=== PATIENT | male | born 1985 | race Caucasian/White ===

== ENCOUNTER 2016-12-06 11:49 | Emergency (ER) | payer OTHER ==
--- NOTE | 2016-12-06 12:45 | ED CLINICAL REPORT ---
Clinical Report - Physicians/Mid Levels [facility] [address] [place] [address] 12/06/2016 11:53 Patient: ROSA QUILES Time Seen: 12:18 Dec 06 2016. Arrived- By private vehicle. Historian- patient. HISTORY OF PRESENT ILLNESS Chief Complaint: SORE THROAT. This started yesterday and is still present. Pain described as moderate. The patient has had a sore throat. (she reports sore throat body aches, fatigue. Dry cough. Multiple sick contacts with influenza home. Patient reports vomiting.). REVIEW OF SYSTEMS The patient has had fever, a cough, diarrhea and vomiting. No difficulty breathing, abdominal pain, difficulty with urination, headache or skin rash. No enlarged lymph nodes. All systems otherwise negative, except as recorded above. 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 Problems: Sick Contact. Drug Poisoning. PTSD. Hepatitis C carrier. Medications: Omeprazole Oral. Allergies: Pineapple. SOCIAL HISTORY Smoker- current status unknown. Alcohol use. History of drug use: marijuana. ADDITIONAL NOTES The nursing notes have been reviewed. PHYSICAL EXAM Vital Signs: 12/06/2016 12:14 BP: 133/91. HR: 99. RR: 20. O2 saturation: 98%. Temp: 98.6 F. Appearance: Alert. Head: Normal external inspection. ENT: Nose normal. Pharyngeal erythema. Pharynx normal. Lips normal. No trismus present. Uvula midline. No tonsillar exudate, peritonsillar mass, dental decay or tenderness or nasal discharge. No purulent nasal discharge. Neck: Lymphadenopathy present. Trachea midline. CVS: Normal heart rate and rhythm. Heart sounds normal. Respiratory: No respiratory distress. Breath sounds normal. LABS, X-RAYS, AND EKG Laboratory Tests: Culture, Strep Screen: (ALAINA: 12/06/2016 12:15) ( MsgRcvd 12/06/2016 12:35) Final results Test Result Flag Units (Reference) RAPID STREP SCREEN - THROAT DATE: 12/06/16 NEGATIVE SCREEN: RAPID STREP SCREEN NEGATIVE; CONFIRMATION TO FOLLOW Rapid Influenza Screen: (ALAINA: 12/06/2016 12:15) ( MsgRcvd 12/06/2016 12:35) Final results SPECIMEN DESCRIPTION: N Test Result Flag Units (Reference) RAPID INFLUENZA SCREEN DATE: 12/06/16 INFLUENZA A: NEGATIVE SCREEN FOR INFLUENZA A INFLUENZA B: NEGATIVE SCREEN FOR INFLUENZA B . PROGRESS AND PROCEDURES Course of Care: patient afebrile in the ER, uvula midline. Stable. Patient on palpation. Patient is stable. Physical exam findings are improved. Symptoms better. Patient/family counseled. Differential Diagnosis: I considered sepsis, viral infection and flu syndrome as a possible cause of fever in this patient. This is a partial list of diagnoses considered. Disposition: Discharged. CLINICAL IMPRESSION Influenza. INSTRUCTIONS Prescription Medications: Zofran (orally disintegrating tablets) 4 mg: take 1 orally every 6 hours for 3 days as needed for nausea. Dispense ten (10). No refill. Tamiflu 75 mg: take 1 capsule orally every 12 hours for 5 days. Dispense ten (10). No refills. Substitution is permissible. OTC Medications: Motrin IB 200 mg (available over the counter): take 4 orally every 8 hours for 6 days, as needed for pain Follow-up: Follow up with your doctor in three days as needed. (Electronically signed by Ramona Lock P.A.-C 12/06/2016 13:09)
--- NOTE | 2016-12-06 12:45 | ED NURSING NOTES ---
Clinical Report - Nurses [facility] [address] [address] 12/06/2016 11:53 Patient: ROSA QUILES TRIAGE Triage time 12:14. Acuity: LEVEL 3. Chief Complaint: FEVER, COUGH, SORE THROAT and BODY ACHES. --12:16 Lanre Peña R.N. 12:14 12/06/16. BP: 133/91. HR: 99. RR: 20. O2 saturation: 98%. Temp: 98.6 F. Pain level now 07/04. --12:16 Lanre Peña R.N. Alert. No acute distress. --12:17 Lanre Peña R.N. Weight: 112.4 kg stated. Height/Length: 75 inches Per Patient. BMI: 31. --12:17 Lanre Peña R.N. Medications Omeprazole Oral. --12:15 Lanre Peña R.N. Allergies Pineapple. --12:15 Lanre Peña R.N. History Arrived by private vehicle. Historian: patient. Accompanied by family. This started yesterday. 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 SOCIAL HX: Smoker- current status unknown. Alcohol use. History of drug use: marijuana. He has had contact with a sick individual. --12:16 Lanre Peña R.N. PROBLEMS: Drug Poisoning. PTSD. Hepatitis C carrier. --12:16 Lanre Peña R.N. Interventions ID band on patient. --12:16 Lanre Peña R.N. PHYSICAL ASSESSMENT Ambulatory to room. GENERAL / NEURO / PSYCH: Alert. Oriented X 4. Appears in no acute distress. RESPIRATORY: Respirations not labored. GI / : Abdomen soft. SKIN: Skin is warm and dry. --12:17 Lanre Peña R.N. NURSING PROGRESS NOTES Patient identifiers checked. Call light placed in reach. Bed placed in lowest position. --12:17 Lanre Peña R.N. Locked/Released at 12/06/2016 12:54 by Lanre Peña R.N.
--- NOTE | 2016-12-06 12:45 | ED NURSING NOTES ---
Clinical Report - Nurses [facility] [place] [address] 12/06/2016 11:53 Patient: ROSA QUILES TRIAGE Triage time 12:14. Acuity: LEVEL 3. Chief Complaint: FEVER, COUGH, SORE THROAT and BODY ACHES. --12:16 Lanre Peña R.N. 12:14 12/06/16. BP: 133/91. HR: 99. RR: 20. O2 saturation: 98%. Temp: 98.6 F. Pain level now 07/04. --12:16 Lanre Peña R.N. Alert. No acute distress. --12:17 Lanre Peña R.N. Weight: 112.4 kg stated. Height/Length: 75 inches Per Patient. BMI: 31. --12:17 Lanre Peña R.N. Medications Omeprazole Oral. --12:15 Lanre Peña R.N. Allergies Pineapple. --12:15 Lanre Peña R.N. History Arrived by private vehicle. Historian: patient. Accompanied by family. This started yesterday. 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 SOCIAL HX: Smoker- current status unknown. Alcohol use. History of drug use: marijuana. He has had contact with a sick individual. --12:16 Lanre Peña R.N. PROBLEMS: Drug Poisoning. PTSD. Hepatitis C carrier. --12:16 Lanre Peña R.N. Interventions ID band on patient. --12:16 Lanre Peña R.N. PHYSICAL ASSESSMENT Ambulatory to room. GENERAL / NEURO / PSYCH: Alert. Oriented X 4. Appears in no acute distress. RESPIRATORY: Respirations not labored. GI / : Abdomen soft. SKIN: Skin is warm and dry. --12:17 Lanre Peña R.N. NURSING PROGRESS NOTES Patient identifiers checked. Call light placed in reach. Bed placed in lowest position. --12:17 Lanre Peña R.N. Locked/Released at 12/06/2016 12:54 by Lanre Peña R.N.
--- NOTE | 2016-12-06 12:45 | ED ORDER SUMMARY ---
..... Patient: ROSA QUILES OrderSheet [facility] VisitID: [id number] [address] [place] [address] 31y, M Registration Date/Time: 12/06/2016 ORDER SHEET Weight: 112.4 kg (stated) Allergies: Pineapple GENERAL ORDERS: Rapid Influenza Screen (Nasal Pharyngeal) (n) Urgent (12:17 12/06/2016 EKlilibeth P.A.-C) (Ack 12:19 Sharath) Culture, Strep Screen Urgent (12:17 12/06/2016 Camelia P.A.-C) (Ack 12:19 Sharath) MEDICATION ORDERS: IV FLUIDS: ORDER SHEET NOTES: [Electronically signed by Lanre Peña R.N. (12:54 12/06/2016)] [Electronically signed by Ramona Lock P.A.-C (13:09 12/06/2016)] [Electronically locked/signed by Lanre Peña R.N. (12:54 12/06/2016)]
--- NOTE | 2016-12-06 12:45 | ED ORDER SUMMARY ---
..... Patient: ROSA QUILES OrderSheet [facility] VisitID: [id number] [address] [place] [address] 31y, M Registration Date/Time: 12/06/2016 ORDER SHEET Weight: 112.4 kg (stated) Allergies: Pineapple GENERAL ORDERS: Rapid Influenza Screen (Nasal Pharyngeal) (n) Urgent (12:17 12/06/2016 EKlilibeth P.A.-C) (Ack 12:19 Sharath) Culture, Strep Screen Urgent (12:17 12/06/2016 Camelia P.A.-C) (Ack 12:19 Sharath) MEDICATION ORDERS: IV FLUIDS: ORDER SHEET NOTES: [Electronically signed by Lanre Peña R.N. (12:54 12/06/2016)] [Electronically signed by Ramona Lock P.A.-C (13:09 12/06/2016)] [Electronically locked/signed by Lanre Peña R.N. (12:54 12/06/2016)]
--- NOTE | 2016-12-06 13:09 | ED MAR SUMMARY ---
..... Medication Administration Record [facility] [address] [place], [place] [id number] Patient: ROSA QUILES Visit ID: [id number] 31y, M Weight: 112.4 kg Height/Length: 75 in BMI: 31 ALLERGIES: Pineapple
--- NOTE | 2016-12-06 13:09 | ED MED RECONCILIATION SUMMARY ---
Patient: ROSA QUILES Medication Reconciliation Report [facility] VisitID: [id number] [address] [place] [address] 31y, M Registration Date/Time: 12/06/2016 Weight: 112.4 kg Height/Length: 75 in. BMI: 31.0 ALLERGIES: Pineapple The patient's Home Medications are listed below: THE FOLLOWING MEDICATIONS NEED TO BE RECONCILED: Omeprazole Oral The source(s) of the original Home Medication information: Not obtained. The following Medications were given to the patient in the Emergency Department: None. The following Medications were prescribed to the patient: Motrin IB 200 mg (available over the counter): take 4 orally every 8 hours for 6 days, as needed for pain -- Ramona Lock P.AJesús-Greg Zofran (orally disintegrating tablets) 4 mg: take 1 orally every 6 hours for 3 days as needed for nausea. Dispense ten (10). No refill. -- Ramona Lock P.AEdmundo Tamiflu 75 mg: take 1 capsule orally every 12 hours for 5 days. Dispense ten (10). No refills. Substitution is permissible. -- Ramona Lock P.AJesús-Greg
--- NOTE | 2016-12-06 13:09 | ED DISCHARGE INSTRUCTIONS ---
Patient: ROSA QUILES General Instructions [facility] VisitID: [id number] [place] [address] 31y, M Registration Date/Time: 12/06/2016 Influenza. INSTRUCTIONS Prescription Medications: Zofran (orally disintegrating tablets) 4 mg: take 1 orally every 6 hours for 3 days as needed for nausea. Dispense ten (10). No refill. Tamiflu 75 mg: take 1 capsule orally every 12 hours for 5 days. Dispense ten (10). No refills. Substitution is permissible. OTC Medications: Motrin IB 200 mg (available over the counter): take 4 orally every 8 hours for 6 days, as needed for pain Follow-up: Follow up with your doctor in three days as needed. ADDITIONAL INFORMATION Influenza (Adult) Influenza, also called the flu, is a viral illness that affects the air passages of the lungs. It differs from the common cold. It is highly contagious. It may be spread through the air by coughing and sneezing or by direct contact (touching the sick person and then touching your own eyes, nose or mouth). Illness starts 1-3 days after exposure and lasts for 1-2 weeks. Antibiotics are usually not needed unless a complication appears (ear or sinus infection or pneumonia). Symptoms may be mild or severe and can include extreme tiredness (wanting to stay in bed all day), chills, fevers, muscle aching, soreness with eye movement, headache, and a dry, hacking cough. Home Care: Avoid exposure to cigarette smoke (yours or others). Tylenol or ibuprofen (Advil) will help fever, muscle aching, and headache. To avoid risk of liver injury, aspirin should not be used in children and teenagers under 18 with this illness. Nausea and loss of appetite are common. A light diet is recommended. Avoid dehydration by drinking 6-8 glasses of fluids per day (water, sport drinks like Gatorade, soft drinks without caffeine, juices, tea, soup, etc.). Extra fluids will also help loosen secretions in the nose and lungs. Jrap-[id number] cold medicines will not shorten the duration of the illness but may be helpful for the following symptoms: cough (Robitussin DM); sore throat (Chloraseptic lozenges or spray); nasal and sinus congestion (Actifed or Sudafed). [NOTE: Do not use decongestants if you have high blood pressure.] Stay home until your fever has been gone for at least 24 hours (without the use of fever-reducing medications such as ibuprofen). Follow Up with your doctor or as directed by our staff if you are not improving over the next week. Note: If you are age 65 or older, or if you have chronic asthma or COPD, we recommend a pneumococcal vaccinationevery five years. All adults shouldreceive a yearly influenza vaccination every . Ask your doctor about this. Get Prompt Medical Attention if any of the following occur: Cough with lots of colored sputum (mucus) or blood in your sputum Chest pain, shortness of breath, wheezing, or difficulty breathing Severe headache, face, neck or ear pain New rash Fever of 100.4F (38C) oral or higher, not better with fever medication Confusion, behavior change or seizure Severe weakness or dizziness Ondansetron Hydrochloride Oral tablet What is this medicine? ONDANSETRON (on DANIEL se stacy) is used to treat nausea and vomiting caused by chemotherapy. It is also used to prevent or treat nausea and vomiting after surgery. How should I use this medicine? Take this medicine by mouth with a glass of water. Follow the directions on your prescription label. Take your doses at regular intervals. Do not take your medicine more often than directed. Talk to your diamond die maker regarding the use of this medicine in children. Special care may be needed. What side effects may I notice from receiving this medicine? Side effects that you should report to your doctor or health animal care technician as soon as possible: allergic reactions like skin rash, itching or hives, swelling of the face, lips or tongue breathing problems dizziness fast or irregular heartbeat feeling faint or lightheaded, falls fever and chills swelling of the hands or feet tightness in the chest Side effects that usually do not require medical attention (report to your doctor or health animal care technician if they continue or are bothersome): constipation or diarrhea headache What may interact with this medicine? Do not take this medicine with any of the following medications: -apomorphine -cisapride -dofetilide -dronedarone -pimozide -thioridazine -ziprasidone This medicine may also interact with the following medications: -carbamazepine -phenytoin -rifampicin -tramadol -other medicines that prolong the QT interval (cause an abnormal heart rhythm) What if I miss a dose? If you miss a dose, take it as soon as you can. If it is almost time for your next dose, take only that dose. Do not take double or extra doses. Where should I keep my medicine? Keep out of the reach of children. Store between 2 and 30 degrees C (36 and 86 degrees F). Throw away any unused medicine after the expiration date. What should I tell my health care provider before I take this medicine? They need to know if you have any of these conditions: heart disease history of irregular heartbeat liver disease low levels of magnesium or potassium in the blood an unusual or allergic reaction to ondansetron, granisetron, other medicines, foods, dyes, or preservatives or trying to get breast-feeding What should I watch for while using this medicine? Check with your doctor or health animal care technician right away if you have any sign of an allergic reaction. Ibuprofen Oral tablet What is this medicine? IBUPROFEN (eye BYOO proe fen) is a non-steroidal anti-inflammatory drug (NSAID). It is used for dental pain, fever, headaches or migraines, osteoarthritis, rheumatoid arthritis, or painful monthly periods. It can also relieve minor aches and pains caused by a cold, flu, or sore throat. How should I use this medicine? Take this medicine by mouth with a glass of water. Follow the directions on the prescription label. Take this medicine with food if your stomach gets upset. Try to not lie down for at least 10 minutes after you take the medicine. Take your medicine at regular intervals. Do not take your medicine more often than directed. A special MedGuide will be given to you by the pharmacist with each prescription and refill. Be sure to read this information carefully each time. Talk to your diamond die maker regarding the use of this medicine in children. Special care may be needed. What side effects may I notice from receiving this medicine? Side effects that you should report to your doctor or health animal care technician as soon as possible: allergic reactions like skin rash, itching or hives, swelling of the face, lips, or tongue black or bloody stools, blood in the urine or in vomit breathing problems changes in vision chest pain general ill feeling or flu-like symptoms nausea or vomiting redness, blistering, peeling or loosening of the skin, including inside the mouth slurred speech or weakness on one side of the body stomach pain unexplained weight gain or swelling unusually weak or tired yellowing of eyes or skin Side effects that usually do not require medical attention (report to your doctor or health animal care technician if they continue or are bothersome): constipation or diarrhea dizziness gas or heartburn stomach upset What may interact with this medicine? Do not take this medicine with any of the following medications: cidofovir ketorolac methotrexate pemetrexed This medicine may also interact with the following medications: alcohol aspirin diuretics lithium other drugs for inflammation like prednisone warfarin What if I miss a dose? If you miss a dose, take it as soon as you can. If it is almost time for your next dose, take only that dose. Do not take double or extra doses. Where should I keep my medicine? Keep out of the reach of children. Store at room temperature between 15 and 30 degrees C (59 and 86 degrees F). Keep container tightly closed. Throw away any unused medicine after the expiration date. What should I tell my health care provider before I take this medicine? They need to know if you have any of these conditions: asthma cigarette smoker drink more than 3 alcohol containing drinks a day heart disease or circulation problems such as heart failure or leg edema (fluid retention) high blood pressure kidney disease liver disease stomach bleeding or ulcers an unusual or allergic reaction to ibuprofen, aspirin, other NSAIDS, other medicines, foods, dyes, or preservatives or trying to get breast-feeding What should I watch for while using this medicine? Tell your doctor or healthcare professional if your symptoms do not start to get better or if they get worse. This medicine does not prevent heart attack or stroke. In fact, this medicine may increase the chance of a heart attack or stroke. The chance may increase with longer use of this medicine and in people who have heart disease. If you take aspirin to prevent heart attack or stroke, talk with your doctor or health animal care technician. Do not take other medicines that contain aspirin, ibuprofen, or naproxen with this medicine. Side effects such as stomach upset, nausea, or ulcers may be more likely to occur. Many medicines available without a prescription should not be taken with this medicine. This medicine can cause ulcers and bleeding in the stomach and intestines at any time during treatment. Ulcers and bleeding can happen without warning symptoms and can cause . To reduce your risk, do not smoke cigarettes or drink alcohol while you are taking this medicine. You may get drowsy or dizzy. Do not drive, use machinery, or do anything that needs mental alertness until you know how this medicine affects you. Do not stand or sit up quickly, especially if you are an older patient. This reduces the risk of dizzy or fainting spells. This medicine can cause you to bleed more easily. Try to avoid damage to your teeth and gums when you brush or floss your teeth. You have been given the following additional information: Influenza (Adult) Ondansetron Hydrochloride Oral tablet Ibuprofen Oral tablet (Electronically signed by Ramona Lock P.A.-C 12/06/2016 13:09)
--- NOTE | 2016-12-06 13:09 | ED MED RECONCILIATION SUMMARY ---
Patient: ROSA QUILES Medication Reconciliation Report [facility] VisitID: [id number] [address] [place] [address] 31y, M Registration Date/Time: 12/06/2016 Weight: 112.4 kg Height/Length: 75 in. BMI: 31.0 ALLERGIES: Pineapple The patient's Home Medications are listed below: THE FOLLOWING MEDICATIONS NEED TO BE RECONCILED: Omeprazole Oral The source(s) of the original Home Medication information: Not obtained. The following Medications were given to the patient in the Emergency Department: None. The following Medications were prescribed to the patient: Motrin IB 200 mg (available over the counter): take 4 orally every 8 hours for 6 days, as needed for pain -- Ramona Lock P.AJesús-Greg Zofran (orally disintegrating tablets) 4 mg: take 1 orally every 6 hours for 3 days as needed for nausea. Dispense ten (10). No refill. -- Ramona Lock P.AEdmundo Tamiflu 75 mg: take 1 capsule orally every 12 hours for 5 days. Dispense ten (10). No refills. Substitution is permissible. -- Ramona Lock P.AJesús-Greg
--- NOTE | 2016-12-06 13:09 | ED MAR SUMMARY ---
..... Medication Administration Record [facility] [address] [place], [place] [id number] Patient: ROSA QUILES Visit ID: [id number] 31y, M Weight: 112.4 kg Height/Length: 75 in BMI: 31 ALLERGIES: Pineapple
== END 2016-12-06 12:55 | disposition home or self-care (01) ==
LOC: ED SRH 11:49
DX: J11.1 Influenza due to unidentified influenza virus with other respiratory manifestations (principal); Z91.018 Allergy to other foods; Z79.899 Other long term (current) drug therapy
CPT/HCPCS: 90154; 90159; 91400

== ENCOUNTER 2017-01-16 11:51 | Emergency (ER) | payer OTHER ==
--- NOTE | 2017-01-16 12:59 | ED ORDER SUMMARY ---
..... Patient: ROSA QUILES OrderSheet [facility] VisitID: [id number] [address] [place] [address] 31y, M Registration Date/Time: 01/16/2017 ORDER SHEET Weight: 113.3 kg (stated) Allergies: Penicillin GENERAL ORDERS: Ribs Unilat w PA Chest Right Urgent (12:19 01/16/2017 Shakeel CERVANTES) ([facility] 12:22 TBeremile) (13:04 Milton Giron) MEDICATION ORDERS: IV FLUIDS: ORDER SHEET NOTES: [Electronically signed by Tracy Palomino R.N. (13:16 01/16/2017)] [Electronically signed by Tova Sosa PA-C (16:08 01/16/2017)] [Electronically locked/signed by Tracy Palomino R.N. (13:16 01/16/2017)]
--- NOTE | 2017-01-16 12:59 | ED CLINICAL REPORT ---
Clinical Report - Physicians/Mid Levels [facility] [address] [place] [address] 01/16/2017 11:53 Patient: ROSA QUILES Time Seen: 12:17; initial patient contact. Arrived- By private vehicle. Historian- patient. HISTORY OF PRESENT ILLNESS Chief Complaint: Injury to CHEST and pt felt pop when moving some furniture just prior to arrival in the left anterior rib with point tenderness. The injury occurred just prior to arrival. Occurred at home. (felt pop with movement). The patient complains of moderate pain. REVIEW OF SYSTEMS The patient has had brief, exertional, well localized left-sided chest pain described as lasting seconds. Has had similar symptoms of chest pain previously. No radiation or associated symptoms. All systems otherwise negative, except as recorded above. PAST HISTORY See nurses notes. Tetanus immunization status is up-to-date. Problems: Bladder Infections. Rib Fracture. Fall from ladder. Influenza. PTSD. Hepatitis C carrier. Medications: Ibuprofen Oral, as needed. Omeprazole Oral, as needed. Allergies: Penicillin. SOCIAL HISTORY Light tobacco smoker (cigarette). Occasional alcohol use. No drug use. ADDITIONAL NOTES The nursing notes have been reviewed with agreement regarding the chief complaint, HPI, ROS, PMH and patient medications and allergies. PHYSICAL EXAM Vital Signs: 01/16/2017 11:58 BP: 135/80. HR: 95. RR: 18. O2 saturation: 100%. Temp: 98.7 F. Have been reviewed. Appearance: Alert. Oriented X3. No acute distress. CVS: Heart sounds normal. Pulses normal. Respiratory: Chest wall injury: mild tenderness located in the lower, left and anterior chest and area of the costal cartilage. No deformity. No splinting present. No paradoxical movement. Breath sounds normal. No decreased breath sounds, rales, wheezes, rhonchi or crepitus. Abdomen: No visible injury. Skin: Skin intact. Skin warm and dry. Normal skin color. Normal skin turgor. CLINICAL IMPRESSION Costochondritis INSTRUCTIONS Apply ice for 10 minutes three times a day for two days followed by moist heat 10 minutes three times a day for two days as needed and until better. Wear rib belt (Geoff wrap for comfort as needed). No strenuous activity for two days as needed. Do not work tomorrow. No dietary restrictions. Warnings: GENERAL WARNINGS: Return or contact your physician immediately if your condition worsens or changes unexpectedly, if not improving as expected, or if other problems arise. Your Current Medications: CONTINUE TAKING THE FOLLOWING MEDICATIONS: Ibuprofen Oral : prn. Omeprazole Oral : prn. Prescription Medications: Hydrocodone/APAP 5mg / 325mg: take 1 orally every 8 hours as needed for pain. Dispense ten (10). No refill. Follow-up: Follow up with your doctor Wednesday if not well. Call for an appointment. Understanding of the discharge instructions verbalized by patient. (Electronically signed by Tova Sosa PA-C 01/16/2017 16:08)
--- NOTE | 2017-01-16 12:59 | ED NURSING NOTES ---
Clinical Report - Nurses [facility] [address] [place] [address] 01/16/2017 11:53 Patient: ROSA QUILES TRIAGE Triage time 11:59. Acuity: LEVEL 4. Chief Complaint: ("ribs hurt"). Alert. No acute distress. ( Pt. states he was doing some heavy lifting and moving about 1 week ago and now he is concerned because his right side and "ribs hurt."). SEPSIS SCREEN: Sepsis Screen. Negative (no infection suspected/documented). MAYA COMA SCORE: [place] Coma Scale: 15- eyes open spontaneously (4); best verbal response- oriented x 4 (5); best motor response- obeys commands (6). --12:03 Tracy Palomino R.N. 11:58 01/16/17. BP: 135/80. HR: 95. RR: 18. O2 saturation: 100%. Temp: 98.7 F. Pain level now 10. --12:03 Tracy Palomino R.N. Weight: 113.3 kg stated. Height/Length: 74 inches Per Patient. BMI: 32.1. --12:00 Tracy Palomino R.N. Medications Omeprazole Oral, as needed. --12:01 Tracy Palomino R.N. Ibuprofen Oral, as needed. --12:01 Tracy Palomino R.N. Allergies Penicillin. --12:01 Tracy Palomino R.N. History Arrived by private vehicle. Historian: patient. Accompanied by (mary). Primary physician (none). Onset. (1 week ago). Treatment RN SANE: (ibuprofen 600mg). PAST MEDICAL HX: Immunizations: up-to-date. SOCIAL HX: Light tobacco smoker (cigarette)- less than 1/2 a pack per day. Occasional alcohol use. History of drug use: marijuana. (daily). ABUSE ASSESSMENT: Abuse assessment: The patient was asked "Do you feel safe in your home?" and "Has anyone hurt you or threatened to hurt you?". No report of abuse. NUTRITIONAL RISK ASSESSMENT: The nutritional risk assessment revealed no deficiencies. FUNCTIONAL ASSESSMENT: Functional assessment: no impairments noted. LEARNING NEEDS ASSESSMENT: The learning needs assessment revealed no barriers. --12:03 Tracy Palomino R.N. PROBLEMS: Bladder Infections. Rib Fracture. Fall from ladder. Influenza. Sick Contact. Drug Poisoning. PTSD. Hepatitis C carrier. --12:02 Tracy Palomino R.N. Interventions ID band on patient. Ambulatory. --12:03 Tracy Palomino R.N. PHYSICAL ASSESSMENT Ambulatory to room. GENERAL / NEURO / PSYCH: Alert. Appears in no acute distress. RESPIRATORY: Respirations not labored. SKIN: Skin intact. Skin is warm and dry. --12:03 Tracy Palomino R.N. NURSING PROGRESS NOTES Patient gowned. Head of bed elevated. Two patient identifiers checked. Call light placed in reach. Side rails up x 2. Bed placed in lowest position. Brakes of bed on. Patient ready for evaluation- chart flagged. --12:03 Tracy Palomino R.N. DISPOSITION / DISCHARGE 13:10 01/16/17. RR: 16. Additional comments: D/C V/S deferred due to pt declines and states, " I am fine I don't want them done.". --13:16 Tracy Palomino R.N. 13:10. Departure time: 1310. Condition at departure: stable. No learning barriers present. Discharge instructions provided and reviewed with the patient. Reviewed medication(s) side effects, precautions, dosing and course information. Prescription(s) given to the patient. Reviewed referral to family practice for followup. Patient verbalized understanding. Written instructions provided in Algerian. The patient was discharged home and accompanied by score caller. He left the Emergency Department ambulatory and via private vehicle. Bioinformatics Scientist driving. --13:16 Tracy Palomino R.N. Locked/Released at 01/16/2017 13:16 by Tracy Palomino R.N.
--- NOTE | 2017-01-16 12:59 | ED ORDER SUMMARY ---
..... Patient: ROSA QUILES OrderSheet [facility] VisitID: [id number] [address] [place] [address] 31y, M Registration Date/Time: 01/16/2017 ORDER SHEET Weight: 113.3 kg (stated) Allergies: Penicillin GENERAL ORDERS: Ribs Unilat w PA Chest Right Urgent (12:19 01/16/2017 Shakeel CERVANTES) ([facility] 12:22 TBeremile) (13:04 Milton Giron) MEDICATION ORDERS: IV FLUIDS: ORDER SHEET NOTES: [Electronically signed by Tracy Palomino R.N. (13:16 01/16/2017)] [Electronically signed by Tova Sosa PA-C (16:08 01/16/2017)] [Electronically locked/signed by Tracy Palomino R.N. (13:16 01/16/2017)]
--- NOTE | 2017-01-16 12:59 | ED NURSING NOTES ---
Clinical Report - Nurses [facility] [address] [place] [address] 01/16/2017 11:53 Patient: ROSA QUILES TRIAGE Triage time 11:59. Acuity: LEVEL 4. Chief Complaint: ("ribs hurt"). Alert. No acute distress. ( Pt. states he was doing some heavy lifting and moving about 1 week ago and now he is concerned because his right side and "ribs hurt."). SEPSIS SCREEN: Sepsis Screen. Negative (no infection suspected/documented). MAYA COMA SCORE: [place] Coma Scale: 15- eyes open spontaneously (4); best verbal response- oriented x 4 (5); best motor response- obeys commands (6). --12:03 Tracy Palomino R.N. 11:58 01/16/17. BP: 135/80. HR: 95. RR: 18. O2 saturation: 100%. Temp: 98.7 F. Pain level now 10. --12:03 Tracy Palomino R.N. Weight: 113.3 kg stated. Height/Length: 74 inches Per Patient. BMI: 32.1. --12:00 Tracy Palomino R.N. Medications Omeprazole Oral, as needed. --12:01 Tracy Palomino R.N. Ibuprofen Oral, as needed. --12:01 Tracy Palomino R.N. Allergies Penicillin. --12:01 Tracy Palomino R.N. History Arrived by private vehicle. Historian: patient. Accompanied by (mary). Primary physician (none). Onset. (1 week ago). Treatment INTRAOPERATIVE NEURO TECH: (ibuprofen 600mg). PAST MEDICAL HX: Immunizations: up-to-date. SOCIAL HX: Light tobacco smoker (cigarette)- less than 1/2 a pack per day. Occasional alcohol use. History of drug use: marijuana. (daily). ABUSE ASSESSMENT: Abuse assessment: The patient was asked "Do you feel safe in your home?" and "Has anyone hurt you or threatened to hurt you?". No report of abuse. NUTRITIONAL RISK ASSESSMENT: The nutritional risk assessment revealed no deficiencies. FUNCTIONAL ASSESSMENT: Functional assessment: no impairments noted. LEARNING NEEDS ASSESSMENT: The learning needs assessment revealed no barriers. --12:03 Tracy Palomino R.N. PROBLEMS: Bladder Infections. Rib Fracture. Fall from ladder. Influenza. Sick Contact. Drug Poisoning. PTSD. Hepatitis C carrier. --12:02 Tracy Palomino R.N. Interventions ID band on patient. Ambulatory. --12:03 Tracy Palomino R.N. PHYSICAL ASSESSMENT Ambulatory to room. GENERAL / NEURO / PSYCH: Alert. Appears in no acute distress. RESPIRATORY: Respirations not labored. SKIN: Skin intact. Skin is warm and dry. --12:03 Tracy Palomino R.N. NURSING PROGRESS NOTES Patient gowned. Head of bed elevated. Two patient identifiers checked. Call light placed in reach. Side rails up x 2. Bed placed in lowest position. Brakes of bed on. Patient ready for evaluation- chart flagged. --12:03 Tracy Palomino R.N. DISPOSITION / DISCHARGE 13:10 01/16/17. RR: 16. Additional comments: D/C V/S deferred due to pt declines and states, " I am fine I don't want them done.". --13:16 Tracy Palomino R.N. 13:10. Departure time: 1310. Condition at departure: stable. No learning barriers present. Discharge instructions provided and reviewed with the patient. Reviewed medication(s) side effects, precautions, dosing and course information. Prescription(s) given to the patient. Reviewed referral to family practice for followup. Patient verbalized understanding. Written instructions provided in Guatemalan. The patient was discharged home and accompanied by integrity analyst. He left the Emergency Department ambulatory and via private vehicle. Sleeve Setter driving. --13:16 Tracy Palomino R.N. Locked/Released at 01/16/2017 13:16 by Tracy Palomino R.N.
--- NOTE | 2017-01-16 12:59 | ED CLINICAL REPORT ---
Clinical Report - Physicians/Mid Levels [facility] [address] [place] [address] 01/16/2017 11:53 Patient: ROSA QUILES Time Seen: 12:17; initial patient contact. Arrived- By private vehicle. Historian- patient. HISTORY OF PRESENT ILLNESS Chief Complaint: Injury to CHEST and pt felt pop when moving some furniture just prior to arrival in the left anterior rib with point tenderness. The injury occurred just prior to arrival. Occurred at home. (felt pop with movement). The patient complains of moderate pain. REVIEW OF SYSTEMS The patient has had brief, exertional, well localized left-sided chest pain described as lasting seconds. Has had similar symptoms of chest pain previously. No radiation or associated symptoms. All systems otherwise negative, except as recorded above. PAST HISTORY See nurses notes. Tetanus immunization status is up-to-date. Problems: Bladder Infections. Rib Fracture. Fall from ladder. Influenza. PTSD. Hepatitis C carrier. Medications: Ibuprofen Oral, as needed. Omeprazole Oral, as needed. Allergies: Penicillin. SOCIAL HISTORY Light tobacco smoker (cigarette). Occasional alcohol use. No drug use. ADDITIONAL NOTES The nursing notes have been reviewed with agreement regarding the chief complaint, HPI, ROS, PMH and patient medications and allergies. PHYSICAL EXAM Vital Signs: 01/16/2017 11:58 BP: 135/80. HR: 95. RR: 18. O2 saturation: 100%. Temp: 98.7 F. Have been reviewed. Appearance: Alert. Oriented X3. No acute distress. CVS: Heart sounds normal. Pulses normal. Respiratory: Chest wall injury: mild tenderness located in the lower, left and anterior chest and area of the costal cartilage. No deformity. No splinting present. No paradoxical movement. Breath sounds normal. No decreased breath sounds, rales, wheezes, rhonchi or crepitus. Abdomen: No visible injury. Skin: Skin intact. Skin warm and dry. Normal skin color. Normal skin turgor. CLINICAL IMPRESSION Costochondritis INSTRUCTIONS Apply ice for 10 minutes three times a day for two days followed by moist heat 10 minutes three times a day for two days as needed and until better. Wear rib belt (Geoff wrap for comfort as needed). No strenuous activity for two days as needed. Do not work tomorrow. No dietary restrictions. Warnings: GENERAL WARNINGS: Return or contact your physician immediately if your condition worsens or changes unexpectedly, if not improving as expected, or if other problems arise. Your Current Medications: CONTINUE TAKING THE FOLLOWING MEDICATIONS: Ibuprofen Oral : prn. Omeprazole Oral : prn. Prescription Medications: Hydrocodone/APAP 5mg / 325mg: take 1 orally every 8 hours as needed for pain. Dispense ten (10). No refill. Follow-up: Follow up with your doctor Wednesday if not well. Call for an appointment. Understanding of the discharge instructions verbalized by patient. (Electronically signed by Tova Sosa PA-C 01/16/2017 16:08)
--- NOTE | 2017-01-16 13:50 | DIAGNOSTIC IMAGING REPORT ---
PROCEDURE: XR RIBS UNILAT W/PA CHEST-RT INDICATION: PAIN TECHNIQUE: Two views of the right ribs with single PA view chest. COMPARISON: None. FINDINGS: RIGHT RIBS: A small metal markers placed over the right lower ribs (region of patient's clinical symptoms). Right ribs are normal. No evidence of fracture. CHEST: Lungs are clear. Heart and mediastinum are normal. Thorax is normal. IMPRESSION: 1. Negative chest and right ribs.
--- NOTE | 2017-01-16 16:08 | ED MAR SUMMARY ---
..... Medication Administration Record [facility] [address] [place], [place] [id number] Patient: ROSA QUILES Visit ID: [id number] 31y, M Weight: 113.3 kg Height/Length: 74 in BMI: 32.1 ALLERGIES: Penicillin
--- NOTE | 2017-01-16 16:08 | ED DISCHARGE INSTRUCTIONS ---
Patient: ROSA QUILES General Instructions [facility] VisitID: [id number] [place] [address] 31y, M Registration Date/Time: 01/16/2017 Costochondritis INSTRUCTIONS Apply ice for 10 minutes three times a day for two days followed by moist heat 10 minutes three times a day for two days as needed and until better. Wear rib belt (Geoff wrap for comfort as needed). No strenuous activity for two days as needed. Do not work tomorrow. No dietary restrictions. Warnings: GENERAL WARNINGS: Return or contact your physician immediately if your condition worsens or changes unexpectedly, if not improving as expected, or if other problems arise. Your Current Medications: CONTINUE TAKING THE FOLLOWING MEDICATIONS: Ibuprofen Oral : prn. Omeprazole Oral : prn. Prescription Medications: Hydrocodone/APAP 5mg / 325mg: take 1 orally every 8 hours as needed for pain. Dispense ten (10). No refill. Follow-up: Follow up with your doctor Wednesday if not well. Call for an appointment. Understanding of the discharge instructions verbalized by patient. ADDITIONAL INFORMATION Chest Wall Pain: Costochondritis The chest pain that you have had today is caused by Costochondritis. This condition is due to an inflammation of the cartilage joining the ribs to the breastbone. It is not caused by heart or lung problems. Although the exact cause for costochondritis is not known, it often occurs during times of emotional stress. It can be painful, but it is not dangerous. It usually disappears within one to two weeks, but may recur. Rarely, a more serious condition may cause symptoms similar to costochondritis; therefore, watch for the warning signs listed below. Home Care: If you feel that emotional stress is a cause of your condition, try to identify sources of that stress. It may not be obvious! Learn ways to deal with the stress in your life such as regular exercise, muscle relaxation, meditation, or simply taking time out for yourself. For more information about this, consult your doctor or go to a local bookstore and review books and tapes available on the subject of stress reduction. You may use acetaminophen (Tylenol) or ibuprofen (Motrin, Advil) to control pain, unless another pain medicine was prescribed. [ NOTE: If you have liver disease or ever had a stomach ulcer, talk with your doctor before using these medicines.] The use of heat (hot wet compress or heating pad) with or without local analgesic creams (Deep Heat Rub, Jose Thibodeaux) will be helpful to reduce pain. Follow Up with your doctor as directed or sooner if you do not start to improve within the next two days. Get Prompt Medical Attention if any of the following occur: A change in the type of pain: if it feels different, becomes more severe, lasts longer, or spreads into your shoulder, arm, neck, jaw or back Shortness of breath or increased pain with breathing Weakness, dizziness, or fainting Cough with dark colored sputum (phlegm) or blood Abdominal pain Dark red or black stools Fever of 100.4F (38C) or higher, or as directed by your healthcare provider Hydrocodone Bitartrate, Acetaminophen Oral tablet What is this medicine? ACETAMINOPHEN; HYDROCODONE (a set a MONIQUE kemal fen; olu droe KOE done) is a pain reliever. It is used to treat mild to moderate pain. How should I use this medicine? Take this medicine by mouth. Swallow it with a full glass of water. Follow the directions on the prescription label. If the medicine upsets your stomach, take the medicine with food or milk. Do not take more than you are told to take. Talk to your wax ball molder regarding the use of this medicine in children. This medicine is not approved for use in children. What side effects may I notice from receiving this medicine? Side effects that you should report to your doctor or health intensive care medicine specialist as soon as possible: allergic reactions like skin rash, itching or hives, swelling of the face, lips, or tongue breathing problems confusion feeling faint or lightheaded, falls stomach pain yellowing of the eyes or skin Side effects that usually do not require medical attention (report to your doctor or health intensive care medicine specialist if they continue or are bothersome): nausea, vomiting stomach upset What may interact with this medicine? alcohol antihistamines isoniazid medicines for depression, anxiety, or psychotic disturbances medicines for sleep muscle relaxants naltrexone narcotic medicines (opiates) for pain phenobarbital ritonavir tramadol What if I miss a dose? If you miss a dose, take it as soon as you can. If it is almost time for your next dose, take only that dose. Do not take double or extra doses. Where should I keep my medicine? Keep out of the reach of children. This medicine can be abused. Keep your medicine in a safe place to protect it from theft. Do not share this medicine with anyone. Selling or giving away this medicine is dangerous and against the law. Store at room temperature between 15 and 30 degrees C (59 and 86 degrees F). Protect from light. Keep container tightly closed. Throw away any unused medicine after the expiration date. Discard unused medicine and used packaging carefully. Pets and children can be harmed if they find used or lost packages. What should I tell my health care provider before I take this medicine? They need to know if you have any of these conditions: brain tumor Crohn's disease, inflammatory bowel disease, or ulcerative colitis drink more than 3 alcohol-containing drinks per day drug abuse or addiction head injury heart or circulation problems kidney disease or problems going to the bathroom liver disease lung disease, asthma, or breathing problems an unusual or allergic reaction to acetaminophen, hydrocodone, other opioid analgesics, other medicines, foods, dyes, or preservatives or trying to get breast-feeding What should I watch for while using this medicine? Tell your doctor or health intensive care medicine specialist if your pain does not go away, if it gets worse, or if you have new or a different type of pain. You may develop tolerance to the medicine. Tolerance means that you will need a higher dose of the medicine for pain relief. Tolerance is normal and is expected if you take the medicine for a long time. Do not suddenly stop taking your medicine because you may develop a severe reaction. Your body becomes used to the medicine. This does NOT mean you are addicted. Addiction is a behavior related to getting and using a drug for a non-medical reason. If you have pain, you have a medical reason to take pain medicine. Your doctor will tell you how much medicine to take. If your doctor wants you to stop the medicine, the dose will be slowly lowered over time to avoid any side effects. You may get drowsy or dizzy when you first start taking the medicine or change doses. Do not drive, use machinery, or do anything that may be dangerous until you know how the medicine affects you. Stand or sit up slowly. There are different types of narcotic medicines (opiates) for pain. If you take more than one type at the same time, you may have more side effects. Give your health care provider a list of all medicines you use. Your doctor will tell you how much medicine to take. Do not take more medicine than directed. Call emergency for help if you have problems breathing. The medicine will cause constipation. Try to have a bowel movement at least every 2 to 3 days. If you do not have a bowel movement for 3 days, call your doctor or health intensive care medicine specialist. Too much acetaminophen can be very dangerous. Do not take Tylenol (acetaminophen) or medicines that contain acetaminophen with this medicine. Many non-prescription medicines contain acetaminophen. Always read the labels carefully. You have been given the following additional information: Chest Wall Pain, Costochondritis Hydrocodone Bitartrate, Acetaminophen Oral tablet No strenuous activity for two days as needed. Do not work tomorrow. (Electronically signed by Tova Ssoa PA-C 01/16/2017 16:08)
--- NOTE | 2017-01-16 16:08 | ED MAR SUMMARY ---
..... Medication Administration Record [facility] [address] [place], [place] [id number] Patient: ROSA QUILES Visit ID: [id number] 31y, M Weight: 113.3 kg Height/Length: 74 in BMI: 32.1 ALLERGIES: Penicillin
--- NOTE | 2017-01-16 16:08 | ED MED RECONCILIATION SUMMARY ---
Patient: ROSA QUILES Medication Reconciliation Report [facility] VisitID: [id number] [address] [place] [address] 31y, M Registration Date/Time: 01/16/2017 Weight: 113.3 kg Height/Length: 74 in. BMI: 32.1 ALLERGIES: Penicillin The patient's Home Medications are listed below: CONTINUE TAKING THE FOLLOWING MEDICATIONS: Ibuprofen Oral Omeprazole Oral The source(s) of the original Home Medication information: Not obtained. The following Medications were given to the patient in the Emergency Department: None. The following Medications were prescribed to the patient: Hydrocodone/APAP 5mg / 325mg: take 1 orally every 8 hours as needed for pain. Dispense ten (10). No refill. -- Tova Sosa PA-C
--- NOTE | 2017-01-16 16:08 | ED MED RECONCILIATION SUMMARY ---
Patient: ROSA QUILES Medication Reconciliation Report [facility] VisitID: [id number] [address] [place] [address] 31y, M Registration Date/Time: 01/16/2017 Weight: 113.3 kg Height/Length: 74 in. BMI: 32.1 ALLERGIES: Penicillin The patient's Home Medications are listed below: CONTINUE TAKING THE FOLLOWING MEDICATIONS: Ibuprofen Oral Omeprazole Oral The source(s) of the original Home Medication information: Not obtained. The following Medications were given to the patient in the Emergency Department: None. The following Medications were prescribed to the patient: Hydrocodone/APAP 5mg / 325mg: take 1 orally every 8 hours as needed for pain. Dispense ten (10). No refill. -- Tova Sosa PA-C
== END 2017-01-16 13:10 | disposition home or self-care (01) ==
LOC: ED SRH 11:51
DX: M94.0 Chondrocostal junction syndrome [Tietze] (principal); X50.0XXA Overexertion from strenuous movement or load, initial encounter; Y93.89 Activity, other specified; Y92.009 Unspecified place in unspecified non-institutional (private) residence as the place of occurrence of the external cause; Y99.9 Unspecified external cause status; F17.210 Nicotine dependence, cigarettes, uncomplicated; Z88.0 Allergy status to penicillin

== ENCOUNTER 2017-01-19 00:51 | Emergency (ER) | payer OTHER ==
--- NOTE | 2017-01-19 03:35 | ED ORDER SUMMARY ---
..... Patient: ROSA QUILES OrderSheet [facility] VisitID: [id number] [address] [place] [address] 31y, M Registration Date/Time: 01/19/2017 ORDER SHEET Weight: 113.3 kg (stated) Allergies: Penicillin GENERAL ORDERS: Chest 2V Urgent (01:04 01/19/2017 Abbi CORBETT) (Ack 1:07 AMcQuoid ER Tech1) (1:12 Omarger) Ribs Unilat Right Urgent (02:39 01/19/2017 Abbi CORBETT) (Ack 2:42 AMcQuoid ER Tech1) (Cancelled: Other3:15 Abbi CORBETT) MEDICATION ORDERS: IV FLUIDS: ORDER SHEET NOTES: [Electronically signed by Terry Beverly MD (09:20 01/19/2017)] [Electronically signed by Jewels Perez R.N. (23:01 01/19/2017)] [Electronically locked/signed by Jewels Perez R.N. (23:01/19/2017)]
--- NOTE | 2017-01-19 03:35 | ED CLINICAL REPORT ---
Clinical Report - Physicians/Mid Levels [facility] [address] [place] [address] 01/19/2017 0:51 Patient: ROSA QUILES Time Seen: 01:00. Arrived- By private vehicle. Historian- patient. HISTORY OF PRESENT ILLNESS Chief Complaint: CHEST PAIN. At its maximum, severity described as severe. When seen in the E.D., severity described as moderate. Modifying factors- worsened by movement and deep breaths. This started about 1 week ago and is still present. It was gradual in onset and has been intermittent. It is described as aching and it is described as located in the right chest area. No difficulty breathing. Similar symptoms previously: Recent medical care: The patient was seen recently at this facility. Seen for similar symptoms. Diagnosis: (costochondritis). ( the patient returns today because he was concerned that he was prescribed a pain medication that contained acetaminophen. He has hepatitis C and does not want to take the VICODIN). REVIEW OF SYSTEMS No chills, fever, sweats, calf pain or cough. No difficulty breathing, pedal edema, palpitations, abdominal pain or constipation. No diarrhea, nausea, vomiting or urinary problems. All systems otherwise negative, except as recorded above. SOCIAL HISTORY Current every day heavy tobacco smoker (cigarette)- less than 1 pack per day. Occasional alcohol use. No drug use. FAMILY HISTORY No significant family medical history. ADDITIONAL NOTES The nursing notes have been reviewed. PHYSICAL EXAM Vital Signs: 01/19/2017 00:56 BP: 149/99. HR: 133. RR: 18. O2 saturation: 99%. Temp: 98.4 F. Appearance: Alert. Eyes: Pupils equal, round and reactive to light. ENT: Pharynx normal. Neck: Normal inspection. Neck supple. CVS: Normal heart rate and rhythm. Heart sounds normal. Respiratory: No respiratory distress. Chest pain reproducible with palpation of the lateral and posterior ribs and with deep breathing. No rales, rhonchi or wheezes. Abdomen: Soft and nontender. Bowel sounds normal. No organomegaly. No mass. Obese. Back: Normal external inspection. Skin: Skin warm and dry. Normal skin color. Normal skin turgor. Extremities: Extremities exhibit normal ROM. No calf tenderness. No lower extremity edema. LABS, X-RAYS, AND EKG Chest X-ray: Normal Chest X-Ray. PROGRESS AND PROCEDURES Course of Care: Patient is stable. Patient/family counseled. Old medical records reviewed. Disposition: Discharged. Condition: stable. CLINICAL IMPRESSION Chest wall pain INSTRUCTIONS No driving or operating machinery while taking medication. Warnings: Further evaluation is necessary. GENERAL WARNINGS: Return or contact your physician immediately if your condition worsens or changes unexpectedly, if not improving as expected, or if other problems arise. Your Current Medications: CONTINUE TAKING THE FOLLOWING MEDICATIONS: Omeprazole Oral : prn. Prescription Medications: Toradol 10 mg tablets: Take 1 tablet orally every 6 hours as needed. Dispense fifteen (15). No refills. Substitution is permissible. Ultram 50 mg: take 1-2 orally every 6 hours as needed for pain. Dispense fifteen (15). No refills. Substitution is permissible. Understanding of the discharge instructions verbalized by patient. Follow-up with: [facility], Family Practice, , [address] [place] [address], [place] [address] Follow up in five days. Call for an appointment. (Electronically signed by Terry Beverly MD 01/19/2017 9:20)
--- NOTE | 2017-01-19 03:35 | ED NURSING NOTES ---
Clinical Report - Nurses Located Within [facility] [address] [place] [address] 01/19/2017 0:51 [id number] Triage time 00:56 Jan 19 2017. Acuity: LEVEL 4. Chief Complaint: (right posterior chest wall pain). 00:56 01/19/17. SEPSIS SCREEN: Sepsis Screen. Negative (no infection suspected/documented). JOEY COMA SCORE: Joey Coma Scale: 15- eyes open spontaneously (4); best verbal response- oriented x 4 (5); best motor response- obeys commands (6). --01:10 Jewels Perez R.N. 00:56 01/19/17. BP: 149/99. HR: 133. RR: 18. O2 saturation: 99%. Temp: 98.4 F. Pain level now 8/10. --01:10 Jewels Perez R.N. Weight: 113.3 kg stated. Height/Length: 74 inches Per Patient. BMI: 32.1. --00:56 Jewels Perez R.N. Medications Omeprazole Oral, as needed. --01:09 Jewels Perez R.N. Allergies Penicillin. --01:09 Jewels Perez R.N. Medication/allergy information source: the patient. --01:10 Jewels Perez R.N. History Arrived by private vehicle. Historian: patient. Accompanied by family. Onset. (8 DAYS AGO). ( PAIN STARTED 8 DAYS AGO ACUTELY. THERE WAS NO TRAUMA PRECEEDING PAIN. FEELS LIKE RIBS ARE POPPING. WAS TREATED HERE A FEW DAYS AGO AND GIVEN VICODIN AND TOLD TO REST. NOT FEELING ANY BETTER). No fever, weakness, cough or difficulty breathing. 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 SOCIAL HX: Heavy tobacco smoker (cigarette)- less than 1 pack per day. Occasional alcohol use. History of heavy drug use: marijuana. No infectious disease exposure. ABUSE ASSESSMENT: No report of abuse. SELF HARM ASSESSMENT: A self harm assessment was performed. The patient answered "no" to the question "Have you recently felt down, depressed, or hopeless?", "Have you noticed less interest or pleasure in doing things?", "Do you have thoughts of harming or killing yourself?", "Are you here because you tried to hurt yourself?", "Have you ever tried to hurt yourself before today?", "Have you recently had thoughts about harming or killing others?" and "Do you have any dangerous items in your possession?". FALL RISK ASSESSMENT: Fall risk assessment completed. No fall risk identified. NUTRITIONAL RISK ASSESSMENT: The nutritional risk assessment revealed no deficiencies. FUNCTIONAL ASSESSMENT: Functional assessment: no impairments noted. LEARNING NEEDS ASSESSMENT: The learning needs assessment revealed no barriers. SKIN INTEGRITY ASSESSMENT: Skin integrity risk assessment completed. No skin integrity risk identified. --01:10 Jewels Perez R.N. PROBLEMS: Costochondritis. Influenza. Sick Contact. PTSD. Hepatitis C carrier. --01:09 Jewels Perez R.N. ADDITIONAL SURGERIES: no known surgeries. Interventions ID band on patient. --01:10 Jewels Perez R.N. PHYSICAL ASSESSMENT 01:10 01/19/17. Ambulatory to room. GENERAL / NEURO / PSYCH: Alert. Oriented X 4. HEENT: Pupils equal, round and reactive to light. No facial asymmetry noted. Mucous membranes are pink. RESPIRATORY: The patient can speak in full sentences. Right upper, mid- and posterior chest wall tenderness. The tenderness reproduces the patient's subjective complaint. Breath sounds within normal limits. CVS: Pulses within normal limits. GI / : Abdomen nontender. SKIN: Skin is warm and dry. --01:11 Jewels Perez R.N. NURSING PROGRESS NOTES 00:56 01/19/17. The initial plan of care for this patient includes an assessment with efforts to address the presence of pain; impairment of the musculoskeletal system. This plan of care was discussed with the patient. Patient gowned. Reassurance given. Two patient identifiers checked. Call light placed in reach. Side rails up x 1. Bed placed in lowest position. Brakes of bed on. Patient ready for evaluation. --01:11 Jewels Perez R.N. 01:50 01/19/17. The patient is calm and resting quietly. Overall patient status is the same- he states feels the same. Patient waiting for radiology results and disposition. --01:50 Jewels Perez R.N. Cold pack applied (to right side posterior chest). --02:03 Jewels Perez R.N. DISPOSITION / DISCHARGE 03:46 01/19/17. Departure time: 03:47 Jan 19 2017. Condition at departure: improved and stable. The goals identified in the patient's plan of care were met. No learning barriers present. Reviewed medication(s) side effects, precautions, dosing and course information. Prescription(s) given to the patient. Reviewed referral to a primary care physician for followup. Summary of care provided to patient via paper. Patient verbalized understanding. Written instructions provided in [place]i. The patient was discharged home and accompanied by v belt finisher. He left the Emergency Department ambulatory and via private vehicle. Supervisor [employer] driving. --03:47 Jewels Perez R.N. 03:46 01/19/17. BP: 157/91. HR: 96. RR: 16. O2 saturation: 97%. Temp: 98.5 F. Pain level now 4/10. --03:47 Jewels Perez R.N. Locked/Released at 01/19/2017 23:01 by Jewels Perez R.N.
--- NOTE | 2017-01-19 03:35 | ED CLINICAL REPORT ---
Clinical Report - Physicians/Mid Levels [facility] [address] [place] [address] 01/19/2017 0:51 Patient: ROSA QUILES Time Seen: 01:00. Arrived- By private vehicle. Historian- patient. HISTORY OF PRESENT ILLNESS Chief Complaint: CHEST PAIN. At its maximum, severity described as severe. When seen in the E.D., severity described as moderate. Modifying factors- worsened by movement and deep breaths. This started about 1 week ago and is still present. It was gradual in onset and has been intermittent. It is described as aching and it is described as located in the right chest area. No difficulty breathing. Similar symptoms previously: Recent medical care: The patient was seen recently at this facility. Seen for similar symptoms. Diagnosis: (costochondritis). ( the patient returns today because he was concerned that he was prescribed a pain medication that contained acetaminophen. He has hepatitis C and does not want to take the VICODIN). REVIEW OF SYSTEMS No chills, fever, sweats, calf pain or cough. No difficulty breathing, pedal edema, palpitations, abdominal pain or constipation. No diarrhea, nausea, vomiting or urinary problems. All systems otherwise negative, except as recorded above. SOCIAL HISTORY Current every day heavy tobacco smoker (cigarette)- less than 1 pack per day. Occasional alcohol use. No drug use. FAMILY HISTORY No significant family medical history. ADDITIONAL NOTES The nursing notes have been reviewed. PHYSICAL EXAM Vital Signs: 01/19/2017 00:56 BP: 149/99. HR: 133. RR: 18. O2 saturation: 99%. Temp: 98.4 F. Appearance: Alert. Eyes: Pupils equal, round and reactive to light. ENT: Pharynx normal. Neck: Normal inspection. Neck supple. CVS: Normal heart rate and rhythm. Heart sounds normal. Respiratory: No respiratory distress. Chest pain reproducible with palpation of the lateral and posterior ribs and with deep breathing. No rales, rhonchi or wheezes. Abdomen: Soft and nontender. Bowel sounds normal. No organomegaly. No mass. Obese. Back: Normal external inspection. Skin: Skin warm and dry. Normal skin color. Normal skin turgor. Extremities: Extremities exhibit normal ROM. No calf tenderness. No lower extremity edema. LABS, X-RAYS, AND EKG Chest X-ray: Normal Chest X-Ray. PROGRESS AND PROCEDURES Course of Care: Patient is stable. Patient/family counseled. Old medical records reviewed. Disposition: Discharged. Condition: stable. CLINICAL IMPRESSION Chest wall pain INSTRUCTIONS No driving or operating machinery while taking medication. Warnings: Further evaluation is necessary. GENERAL WARNINGS: Return or contact your physician immediately if your condition worsens or changes unexpectedly, if not improving as expected, or if other problems arise. Your Current Medications: CONTINUE TAKING THE FOLLOWING MEDICATIONS: Omeprazole Oral : prn. Prescription Medications: Toradol 10 mg tablets: Take 1 tablet orally every 6 hours as needed. Dispense fifteen (15). No refills. Substitution is permissible. Ultram 50 mg: take 1-2 orally every 6 hours as needed for pain. Dispense fifteen (15). No refills. Substitution is permissible. Understanding of the discharge instructions verbalized by patient. Follow-up with: [facility], Family Practice, , [address] [place] [address], [place] [address] Follow up in five days. Call for an appointment. (Electronically signed by Terry Beverly MD 01/19/2017 9:20)
--- NOTE | 2017-01-19 03:35 | ED NURSING NOTES ---
Clinical Report - Nurses [facility] [address] [address] 01/19/2017 0:51 [id number] Triage time 00:56 Jan 19 2017. Acuity: LEVEL 4. Chief Complaint: (right posterior chest wall pain). 00:56 01/19/17. SEPSIS SCREEN: Sepsis Screen. Negative (no infection suspected/documented). JOEY COMA SCORE: Joey Coma Scale: 15- eyes open spontaneously (4); best verbal response- oriented x 4 (5); best motor response- obeys commands (6). --01:10 Jewels Perez R.N. 00:56 01/19/17. BP: 149/99. HR: 133. RR: 18. O2 saturation: 99%. Temp: 98.4 F. Pain level now 8/10. --01:10 Jewels Perez R.N. Weight: 113.3 kg stated. Height/Length: 74 inches Per Patient. BMI: 32.1. --00:56 Jewels Perez R.N. Medications Omeprazole Oral, as needed. --01:09 Jewels Perez R.N. Allergies Penicillin. --01:09 Jewels Perez R.N. Medication/allergy information source: the patient. --01:10 Jewels Perez R.N. History Arrived by private vehicle. Historian: patient. Accompanied by family. Onset. (8 DAYS AGO). ( PAIN STARTED 8 DAYS AGO ACUTELY. THERE WAS NO TRAUMA PRECEEDING PAIN. FEELS LIKE RIBS ARE POPPING. WAS TREATED HERE A FEW DAYS AGO AND GIVEN VICODIN AND TOLD TO REST. NOT FEELING ANY BETTER). No fever, weakness, cough or difficulty breathing. 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 SOCIAL HX: Heavy tobacco smoker (cigarette)- less than 1 pack per day. Occasional alcohol use. History of heavy drug use: marijuana. No infectious disease exposure. ABUSE ASSESSMENT: No report of abuse. SELF HARM ASSESSMENT: A self harm assessment was performed. The patient answered "no" to the question "Have you recently felt down, depressed, or hopeless?", "Have you noticed less interest or pleasure in doing things?", "Do you have thoughts of harming or killing yourself?", "Are you here because you tried to hurt yourself?", "Have you ever tried to hurt yourself before today?", "Have you recently had thoughts about harming or killing others?" and "Do you have any dangerous items in your possession?". FALL RISK ASSESSMENT: Fall risk assessment completed. No fall risk identified. NUTRITIONAL RISK ASSESSMENT: The nutritional risk assessment revealed no deficiencies. FUNCTIONAL ASSESSMENT: Functional assessment: no impairments noted. LEARNING NEEDS ASSESSMENT: The learning needs assessment revealed no barriers. SKIN INTEGRITY ASSESSMENT: Skin integrity risk assessment completed. No skin integrity risk identified. --01:10 Jewels Perez R.N. PROBLEMS: Costochondritis. Influenza. Sick Contact. PTSD. Hepatitis C carrier. --01:09 Jewels Perez R.N. ADDITIONAL SURGERIES: no known surgeries. Interventions ID band on patient. --01:10 Jewels Perez R.N. PHYSICAL ASSESSMENT 01:10 01/19/17. Ambulatory to room. GENERAL / NEURO / PSYCH: Alert. Oriented X 4. HEENT: Pupils equal, round and reactive to light. No facial asymmetry noted. Mucous membranes are pink. RESPIRATORY: The patient can speak in full sentences. Right upper, mid- and posterior chest wall tenderness. The tenderness reproduces the patient's subjective complaint. Breath sounds within normal limits. CVS: Pulses within normal limits. GI / : Abdomen nontender. SKIN: Skin is warm and dry. --01:11 Jewels Perez R.N. NURSING PROGRESS NOTES 00:56 01/19/17. The initial plan of care for this patient includes an assessment with efforts to address the presence of pain; impairment of the musculoskeletal system. This plan of care was discussed with the patient. Patient gowned. Reassurance given. Two patient identifiers checked. Call light placed in reach. Side rails up x 1. Bed placed in lowest position. Brakes of bed on. Patient ready for evaluation. --01:11 Jewels Perez R.N. 01:50 01/19/17. The patient is calm and resting quietly. Overall patient status is the same- he states feels the same. Patient waiting for radiology results and disposition. --01:50 Jewels Perez R.N. Cold pack applied (to right side posterior chest). --02:03 Jewels Perez R.N. DISPOSITION / DISCHARGE 03:46 01/19/17. Departure time: 03:47 Jan 19 2017. Condition at departure: improved and stable. The goals identified in the patient's plan of care were met. No learning barriers present. Reviewed medication(s) side effects, precautions, dosing and course information. Prescription(s) given to the patient. Reviewed referral to a primary care physician for followup. Summary of care provided to patient via paper. Patient verbalized understanding. Written instructions provided in [place]. The patient was discharged home and accompanied by records management coordinator. He left the Emergency Department ambulatory and via private vehicle. Cotton Tier driving. --03:47 Jewels Perez R.N. 03:46 01/19/17. BP: 157/91. HR: 96. RR: 16. O2 saturation: 97%. Temp: 98.5 F. Pain level now 4/10. --03:47 Jewels Perez R.N. Locked/Released at 01/19/2017 23:01 by Jewels Perez R.N.
--- NOTE | 2017-01-19 03:35 | ED ORDER SUMMARY ---
..... Patient: ROSA QUILES OrderSheet [facility] VisitID: [id number] [address] [place] [address] 31y, M Registration Date/Time: 01/19/2017 ORDER SHEET Weight: 113.3 kg (stated) Allergies: Penicillin GENERAL ORDERS: Chest 2V Urgent (01:04 01/19/2017 Abbi CORBETT) (Ack 1:07 AMcQuoid ER Tech1) (1:12 Omarger) Ribs Unilat Right Urgent (02:39 01/19/2017 Abbi CORBETT) (Ack 2:42 AMcQuoid ER Tech1) (Cancelled: Other3:15 Abbi CORBETT) MEDICATION ORDERS: IV FLUIDS: ORDER SHEET NOTES: [Electronically signed by Terry Beverly MD (09:20 01/19/2017)] [Electronically signed by Jewels Perez R.N. (23:01 01/19/2017)] [Electronically locked/signed by Jewels Perez R.N. (23:01/19/2017)]
--- NOTE | 2017-01-19 08:30 | DIAGNOSTIC IMAGING REPORT ---
PROCEDURE: XR CHEST 2 VIEW INDICATION: CHEST PAIN TECHNIQUE: PA and lateral view. COMPARISON: None. FINDINGS: Lungs are clear. Cardiovascular structures are normal. There is a BB over the inferior right lateral chest wall. Bony thorax is unremarkable. IMPRESSION: 1. Negative chest.
--- NOTE | 2017-01-19 23:01 | ED MED RECONCILIATION SUMMARY ---
Patient: ROSA QUILES Medication Reconciliation Report [facility] VisitID: [id number] [address] [place] [address] 31y, M Registration Date/Time: 01/19/2017 Weight: 113.3 kg Height/Length: 74 in. BMI: 32.1 ALLERGIES: Penicillin The patient's Home Medications are listed below: CONTINUE TAKING THE FOLLOWING MEDICATIONS: Omeprazole Oral The source(s) of the original Home Medication information: patient The following Medications were given to the patient in the Emergency Department: None. The following Medications were prescribed to the patient: Toradol 10 mg tablets: Take 1 tablet orally every 6 hours as needed. Dispense fifteen (15). No refills. Substitution is permissible. -- Terry Beverly MD Ultram 50 mg: take 1-2 orally every 6 hours as needed for pain. Dispense fifteen (15). No refills. Substitution is permissible. -- Terry Beverly MD
--- NOTE | 2017-01-19 23:01 | ED DISCHARGE INSTRUCTIONS ---
Patient: ROSA QUILES General Instructions [facility] VisitID: [id number] [place] [address] 31y, M Registration Date/Time: 01/19/2017 Chest wall pain INSTRUCTIONS No driving or operating machinery while taking medication. Warnings: Further evaluation is necessary. GENERAL WARNINGS: Return or contact your physician immediately if your condition worsens or changes unexpectedly, if not improving as expected, or if other problems arise. Your Current Medications: CONTINUE TAKING THE FOLLOWING MEDICATIONS: Omeprazole Oral : prn. Prescription Medications: Toradol 10 mg tablets: Take 1 tablet orally every 6 hours as needed. Dispense fifteen (15). No refills. Substitution is permissible. Ultram 50 mg: take 1-2 orally every 6 hours as needed for pain. Dispense fifteen (15). No refills. Substitution is permissible. Understanding of the discharge instructions verbalized by patient. Follow-up with: [facility], , [address] [place] [address] Follow up in five days. Call for an appointment. ADDITIONAL INFORMATION Chest Strain A strain of the chest is due to stretching and tearing of the muscle fibers between the ribs. This may occur as a result of severe coughing, strenuous lifting or twisting injuries of the upper back. This usually causes increased pain with movement or deep breathing. This may take a few days to a few weeks to heal. Home Care: Rest. Avoid heavy lifting or strenuous exertion. Avoid any activity that causes pain. If you have a severe cough, use a cough syrup such as Robitussin DM (containing dextromethorphan) unless another cough medicine was prescribed. You may use acetaminophen (Tylenol) or ibuprofen (Motrin, Advil) to control pain, unless another medicine was prescribed. [ NOTE: If you have chronic liver or kidney disease or ever had a stomach ulcer or GI bleeding, talk with your doctor before using these medicines.] Follow Up with your doctor as directed. Get Prompt Medical Attention if any of the following occur: A change in the type of pain: if it feels different, becomes more severe, lasts longer, or begins to spread into your shoulder, arm, neck, jaw or back Shortness of breath or increased pain with breathing Cough with dark colored sputum (phlegm) or blood Weakness, dizziness, or fainting Fever of 100.4F (38C) or higher, or as directed by your healthcare provider Ketorolac Tromethamine Oral tablet What is this medicine? KETOROLAC (brent toe ROLE ak) is a non-steroidal anti-inflammatory drug (NSAID). It is used for a short while to treat moderate to severe pain, including pain after surgery. It should not be used for more than 5 days. How should I use this medicine? Take this medicine by mouth with a full glass of water. Follow the directions on the prescription label. Take your medicine at regular intervals. Do not take your medicine more often than directed. Do not take more than the recommended dose. A special MedGuide will be given to you by the pharmacist with each prescription and refill. Be sure to read this information carefully each time. Talk to your smoke tester regarding the use of this medicine in children. While this drug may be prescribed for children as young as 16 years of age for selected conditions, precautions do apply. Patients over 65 years old may have a stronger reaction and need a smaller dose. What side effects may I notice from receiving this medicine? Side effects that you should report to your doctor or health child caregiver private home as soon as possible: allergic reactions like skin rash, itching or hives, swelling of the face, lips, or tongue black or tarry stools breathing problems changes in vision chest pain high blood pressure nausea or vomiting redness, blistering, peeling or loosening of the skin, including inside the mouth severe abdominal pain slurred speech or weakness on one side of the body unexplained weight gain or swelling unusual bleeding or bruising unusually weak or tired yellowing of eyes or skin Side effects that usually do not require medical attention (report to your doctor or health child caregiver private home if they continue or are bothersome): diarrhea dizziness headache heartburn What may interact with this medicine? Do not take this medicine with any of the following medications: aspirin and aspirin-like medicines cidofovir methotrexate NSAIDs, medicines for pain and inflammation, like ibuprofen or naproxen pemetrexed probenecid This medicine may also interact with the following medications: alcohol alendronate alprazolam carbamazepine cyclosporine diuretics flavocoxid fluoxetine ginkgo lithium medicines for high blood pressure like enalapril medicines that affect platelets like pentoxifylline medicines that treat or prevent blood clots like heparin, warfarin muscle relaxants phenytoin steroid medicines like prednisone or cortisone thiothixene What if I miss a dose? If you miss a dose, take it as soon as you can. If it is almost time for your next dose, take only that dose. Do not take double or extra doses. Where should I keep my medicine? Keep out of the reach of children. Store at room temperature between 20 and 25 degrees C (68 and 77 degrees F). Throw away any unused medicine after the expiration date. What should I tell my health care provider before I take this medicine? They need to know if you have any of these conditions: asthma bleeding problems like hemophilia cigarette smoker drink more than 3 alcohol containing drinks a day heart disease or circulation problems such as heart failure or leg edema (fluid retention) high blood pressure kidney disease liver disease stomach bleeding or ulcers an unusual or allergic reaction to ketorolac, aspirin, other NSAIDs, other medicines, foods, dyes, or preservatives or trying to get breast-feeding What should I watch for while using this medicine? Tell your doctor or health child caregiver private home if your pain does not get better. Talk to your doctor before taking another medicine for pain. Do not treat yourself. This medicine does not prevent heart attack or stroke. In fact, this medicine may increase the chance of a heart attack or stroke. The chance may increase with longer use of this medicine and in people who have heart disease. If you take aspirin to prevent heart attack or stroke, talk with your doctor or health child caregiver private home. Do not take medicines such as ibuprofen and naproxen with this medicine. Side effects such as stomach upset, nausea, or ulcers may be more likely to occur. Many medicines available without a prescription should not be taken with this medicine. This medicine can cause ulcers and bleeding in the stomach and intestines at any time during treatment. Do not smoke cigarettes or drink alcohol. These increase irritation to your stomach and can make it more susceptible to damage from this medicine. Ulcers and bleeding can happen without warning symptoms and can cause . You may get drowsy or dizzy. Do not drive, use machinery, or do anything that needs mental alertness until you know how this medicine affects you. Do not stand or sit up quickly, especially if you are an older patient. This reduces the risk of dizzy or fainting spells. This medicine can cause you to bleed more easily. Try to avoid damage to your teeth and gums when you brush or floss your teeth. Tramadol Hydrochloride Oral tablet What is this medicine? TRAMADOL (TRA ma dole) is a pain reliever. It is used to treat moderate to severe pain in adults. How should I use this medicine? Take this medicine by mouth with a full glass of water. Follow the directions on the prescription label. If the medicine upsets your stomach, take it with food or milk. Do not take more medicine than you are told to take. Talk to your smoke tester regarding the use of this medicine in children. Special care may be needed. What side effects may I notice from receiving this medicine? Side effects that you should report to your doctor or health child caregiver private home as soon as possible: allergic reactions like skin rash, itching or hives, swelling of the face, lips, or tongue breathing difficulties, wheezing confusion itching light headedness or fainting spells redness, blistering, peeling or loosening of the skin, including inside the mouth seizures Side effects that usually do not require medical attention (report to your doctor or health child caregiver private home if they continue or are bothersome): constipation dizziness drowsiness headache nausea, vomiting What may interact with this medicine? Do not take this medicine with any of the following medications: MAOIs like Carbex, Eldepryl, Marplan, Nardil, and Parnate This medicine may also interact with the following medications: alcohol or medicines that contain alcohol antihistamines benzodiazepines bupropion carbamazepine or oxcarbazepine clozapine cyclobenzaprine digoxin furazolidone linezolid medicines for depression, anxiety, or psychotic disturbances medicines for migraine headache like almotriptan, eletriptan, frovatriptan, naratriptan, rizatriptan, sumatriptan, zolmitriptan medicines for pain like pentazocine, buprenorphine, butorphanol, meperidine, nalbuphine, and propoxyphene medicines for sleep muscle relaxants naltrexone phenobarbital phenothiazines like perphenazine, thioridazine, chlorpromazine, mesoridazine, fluphenazine, prochlorperazine, promazine, and trifluoperazine procarbazine warfarin What if I miss a dose? If you miss a dose, take it as soon as you can. If it is almost time for your next dose, take only that dose. Do not take double or extra doses. Where should I keep my medicine? Keep out of the reach of children. Store at room temperature between 15 and 30 degrees C (59 and 86 degrees F). Keep container tightly closed. Throw away any unused medicine after the expiration date. What should I tell my health care provider before I take this medicine? They need to know if you have any of these conditions: brain tumor depression drug abuse or addiction head injury if you frequently drink alcohol containing drinks kidney disease or trouble passing urine liver disease lung disease, asthma, or breathing problems seizures or epilepsy suicidal thoughts, plans, or attempt; a previous suicide attempt by you or a family member an unusual or allergic reaction to tramadol, codeine, other medicines, foods, dyes, or preservatives or trying to get breast-feeding What should I watch for while using this medicine? Tell your doctor or health child caregiver private home if your pain does not go away, if it gets worse, or if you have new or a different type of pain. You may develop tolerance to the medicine. Tolerance means that you will need a higher dose of the medicine for pain relief. Tolerance is normal and is expected if you take this medicine for a long time. Do not suddenly stop taking your medicine because you may develop a severe reaction. Your body becomes used to the medicine. This does NOT mean you are addicted. Addiction is a behavior related to getting and using a drug for a non-medical reason. If you have pain, you have a medical reason to take pain medicine. Your doctor will tell you how much medicine to take. If your doctor wants you to stop the medicine, the dose will be slowly lowered over time to avoid any side effects. You may get drowsy or dizzy. Do not drive, use machinery, or do anything that needs mental alertness until you know how this medicine affects you. Do not stand or sit up quickly, especially if you are an older patient. This reduces the risk of dizzy or fainting spells. Alcohol can increase or decrease the effects of this medicine. Avoid alcoholic drinks. You may have constipation. Try to have a bowel movement at least every 2 to 3 days. If you do not have a bowel movement for 3 days, call your doctor or health child caregiver private home. Your mouth may get dry. Chewing sugarless gum or sucking hard candy, and drinking plenty of water may help. Contact your doctor if the problem does not go away or is severe. You have been given the following additional information: Chest Wall Strain Ketorolac Tromethamine Oral tablet Tramadol Hydrochloride Oral tablet No driving or operating machinery while taking medication. (Electronically signed by Terry Beverly MD 01/19/2017 9:20)
--- NOTE | 2017-01-19 23:01 | ED MAR SUMMARY ---
..... Medication Administration Record [facility] [address] [place], [place] [id number] Patient: ROSA QUILES Visit ID: [id number] 31y, M Weight: 113.3 kg Height/Length: 74 in BMI: 32.1 ALLERGIES: Penicillin
--- NOTE | 2017-01-19 23:01 | ED MED RECONCILIATION SUMMARY ---
Patient: ROSA QUILES Medication Reconciliation Report [facility] VisitID: [id number] [address] [place] [address] 31y, M Registration Date/Time: 01/19/2017 Weight: 113.3 kg Height/Length: 74 in. BMI: 32.1 ALLERGIES: Penicillin The patient's Home Medications are listed below: CONTINUE TAKING THE FOLLOWING MEDICATIONS: Omeprazole Oral The source(s) of the original Home Medication information: patient The following Medications were given to the patient in the Emergency Department: None. The following Medications were prescribed to the patient: Toradol 10 mg tablets: Take 1 tablet orally every 6 hours as needed. Dispense fifteen (15). No refills. Substitution is permissible. -- Terry Beverly MD Ultram 50 mg: take 1-2 orally every 6 hours as needed for pain. Dispense fifteen (15). No refills. Substitution is permissible. -- Terry Beverly MD
--- NOTE | 2017-01-19 23:01 | ED MAR SUMMARY ---
..... Medication Administration Record [facility] [address] [place], [place] [id number] Patient: ROSA QUILES Visit ID: [id number] 31y, M Weight: 113.3 kg Height/Length: 74 in BMI: 32.1 ALLERGIES: Penicillin
--- NOTE | 2017-01-19 23:01 | ED DISCHARGE INSTRUCTIONS ---
Patient: ROSA QUILES General Instructions [facility] VisitID: [id number] [place] [address] 31y, M Registration Date/Time: 01/19/2017 Chest wall pain INSTRUCTIONS No driving or operating machinery while taking medication. Warnings: Further evaluation is necessary. GENERAL WARNINGS: Return or contact your physician immediately if your condition worsens or changes unexpectedly, if not improving as expected, or if other problems arise. Your Current Medications: CONTINUE TAKING THE FOLLOWING MEDICATIONS: Omeprazole Oral : prn. Prescription Medications: Toradol 10 mg tablets: Take 1 tablet orally every 6 hours as needed. Dispense fifteen (15). No refills. Substitution is permissible. Ultram 50 mg: take 1-2 orally every 6 hours as needed for pain. Dispense fifteen (15). No refills. Substitution is permissible. Understanding of the discharge instructions verbalized by patient. Follow-up with: [facility] [place], , [address] [place] [address] Follow up in five days. Call for an appointment. ADDITIONAL INFORMATION Chest Strain A strain of the chest is due to stretching and tearing of the muscle fibers between the ribs. This may occur as a result of severe coughing, strenuous lifting or twisting injuries of the upper back. This usually causes increased pain with movement or deep breathing. This may take a few days to a few weeks to heal. Home Care: Rest. Avoid heavy lifting or strenuous exertion. Avoid any activity that causes pain. If you have a severe cough, use a cough syrup such as Robitussin DM (containing dextromethorphan) unless another cough medicine was prescribed. You may use acetaminophen (Tylenol) or ibuprofen (Motrin, Advil) to control pain, unless another medicine was prescribed. [ NOTE: If you have chronic liver or kidney disease or ever had a stomach ulcer or GI bleeding, talk with your doctor before using these medicines.] Follow Up with your doctor as directed. Get Prompt Medical Attention if any of the following occur: A change in the type of pain: if it feels different, becomes more severe, lasts longer, or begins to spread into your shoulder, arm, neck, jaw or back Shortness of breath or increased pain with breathing Cough with dark colored sputum (phlegm) or blood Weakness, dizziness, or fainting Fever of 100.4F (38C) or higher, or as directed by your healthcare provider Ketorolac Tromethamine Oral tablet What is this medicine? KETOROLAC (brent toe ROLE ak) is a non-steroidal anti-inflammatory drug (NSAID). It is used for a short while to treat moderate to severe pain, including pain after surgery. It should not be used for more than 5 days. How should I use this medicine? Take this medicine by mouth with a full glass of water. Follow the directions on the prescription label. Take your medicine at regular intervals. Do not take your medicine more often than directed. Do not take more than the recommended dose. A special MedGuide will be given to you by the pharmacist with each prescription and refill. Be sure to read this information carefully each time. Talk to your steam fitter regarding the use of this medicine in children. While this drug may be prescribed for children as young as 16 years of age for selected conditions, precautions do apply. Patients over 65 years old may have a stronger reaction and need a smaller dose. What side effects may I notice from receiving this medicine? Side effects that you should report to your doctor or health district manager primary care sales as soon as possible: allergic reactions like skin rash, itching or hives, swelling of the face, lips, or tongue black or tarry stools breathing problems changes in vision chest pain high blood pressure nausea or vomiting redness, blistering, peeling or loosening of the skin, including inside the mouth severe abdominal pain slurred speech or weakness on one side of the body unexplained weight gain or swelling unusual bleeding or bruising unusually weak or tired yellowing of eyes or skin Side effects that usually do not require medical attention (report to your doctor or health district manager primary care sales if they continue or are bothersome): diarrhea dizziness headache heartburn What may interact with this medicine? Do not take this medicine with any of the following medications: aspirin and aspirin-like medicines cidofovir methotrexate NSAIDs, medicines for pain and inflammation, like ibuprofen or naproxen pemetrexed probenecid This medicine may also interact with the following medications: alcohol alendronate alprazolam carbamazepine cyclosporine diuretics flavocoxid fluoxetine ginkgo lithium medicines for high blood pressure like enalapril medicines that affect platelets like pentoxifylline medicines that treat or prevent blood clots like heparin, warfarin muscle relaxants phenytoin steroid medicines like prednisone or cortisone thiothixene What if I miss a dose? If you miss a dose, take it as soon as you can. If it is almost time for your next dose, take only that dose. Do not take double or extra doses. Where should I keep my medicine? Keep out of the reach of children. Store at room temperature between 20 and 25 degrees C (68 and 77 degrees F). Throw away any unused medicine after the expiration date. What should I tell my health care provider before I take this medicine? They need to know if you have any of these conditions: asthma bleeding problems like hemophilia cigarette smoker drink more than 3 alcohol containing drinks a day heart disease or circulation problems such as heart failure or leg edema (fluid retention) high blood pressure kidney disease liver disease stomach bleeding or ulcers an unusual or allergic reaction to ketorolac, aspirin, other NSAIDs, other medicines, foods, dyes, or preservatives or trying to get breast-feeding What should I watch for while using this medicine? Tell your doctor or health district manager primary care sales if your pain does not get better. Talk to your doctor before taking another medicine for pain. Do not treat yourself. This medicine does not prevent heart attack or stroke. In fact, this medicine may increase the chance of a heart attack or stroke. The chance may increase with longer use of this medicine and in people who have heart disease. If you take aspirin to prevent heart attack or stroke, talk with your doctor or health district manager primary care sales. Do not take medicines such as ibuprofen and naproxen with this medicine. Side effects such as stomach upset, nausea, or ulcers may be more likely to occur. Many medicines available without a prescription should not be taken with this medicine. This medicine can cause ulcers and bleeding in the stomach and intestines at any time during treatment. Do not smoke cigarettes or drink alcohol. These increase irritation to your stomach and can make it more susceptible to damage from this medicine. Ulcers and bleeding can happen without warning symptoms and can cause . You may get drowsy or dizzy. Do not drive, use machinery, or do anything that needs mental alertness until you know how this medicine affects you. Do not stand or sit up quickly, especially if you are an older patient. This reduces the risk of dizzy or fainting spells. This medicine can cause you to bleed more easily. Try to avoid damage to your teeth and gums when you brush or floss your teeth. Tramadol Hydrochloride Oral tablet What is this medicine? TRAMADOL (TRA ma dole) is a pain reliever. It is used to treat moderate to severe pain in adults. How should I use this medicine? Take this medicine by mouth with a full glass of water. Follow the directions on the prescription label. If the medicine upsets your stomach, take it with food or milk. Do not take more medicine than you are told to take. Talk to your steam fitter regarding the use of this medicine in children. Special care may be needed. What side effects may I notice from receiving this medicine? Side effects that you should report to your doctor or health district manager primary care sales as soon as possible: allergic reactions like skin rash, itching or hives, swelling of the face, lips, or tongue breathing difficulties, wheezing confusion itching light headedness or fainting spells redness, blistering, peeling or loosening of the skin, including inside the mouth seizures Side effects that usually do not require medical attention (report to your doctor or health district manager primary care sales if they continue or are bothersome): constipation dizziness drowsiness headache nausea, vomiting What may interact with this medicine? Do not take this medicine with any of the following medications: MAOIs like Carbex, Eldepryl, Marplan, Nardil, and Parnate This medicine may also interact with the following medications: alcohol or medicines that contain alcohol antihistamines benzodiazepines bupropion carbamazepine or oxcarbazepine clozapine cyclobenzaprine digoxin furazolidone linezolid medicines for depression, anxiety, or psychotic disturbances medicines for migraine headache like almotriptan, eletriptan, frovatriptan, naratriptan, rizatriptan, sumatriptan, zolmitriptan medicines for pain like pentazocine, buprenorphine, butorphanol, meperidine, nalbuphine, and propoxyphene medicines for sleep muscle relaxants naltrexone phenobarbital phenothiazines like perphenazine, thioridazine, chlorpromazine, mesoridazine, fluphenazine, prochlorperazine, promazine, and trifluoperazine procarbazine warfarin What if I miss a dose? If you miss a dose, take it as soon as you can. If it is almost time for your next dose, take only that dose. Do not take double or extra doses. Where should I keep my medicine? Keep out of the reach of children. Store at room temperature between 15 and 30 degrees C (59 and 86 degrees F). Keep container tightly closed. Throw away any unused medicine after the expiration date. What should I tell my health care provider before I take this medicine? They need to know if you have any of these conditions: brain tumor depression drug abuse or addiction head injury if you frequently drink alcohol containing drinks kidney disease or trouble passing urine liver disease lung disease, asthma, or breathing problems seizures or epilepsy suicidal thoughts, plans, or attempt; a previous suicide attempt by you or a family member an unusual or allergic reaction to tramadol, codeine, other medicines, foods, dyes, or preservatives or trying to get breast-feeding What should I watch for while using this medicine? Tell your doctor or health district manager primary care sales if your pain does not go away, if it gets worse, or if you have new or a different type of pain. You may develop tolerance to the medicine. Tolerance means that you will need a higher dose of the medicine for pain relief. Tolerance is normal and is expected if you take this medicine for a long time. Do not suddenly stop taking your medicine because you may develop a severe reaction. Your body becomes used to the medicine. This does NOT mean you are addicted. Addiction is a behavior related to getting and using a drug for a non-medical reason. If you have pain, you have a medical reason to take pain medicine. Your doctor will tell you how much medicine to take. If your doctor wants you to stop the medicine, the dose will be slowly lowered over time to avoid any side effects. You may get drowsy or dizzy. Do not drive, use machinery, or do anything that needs mental alertness until you know how this medicine affects you. Do not stand or sit up quickly, especially if you are an older patient. This reduces the risk of dizzy or fainting spells. Alcohol can increase or decrease the effects of this medicine. Avoid alcoholic drinks. You may have constipation. Try to have a bowel movement at least every 2 to 3 days. If you do not have a bowel movement for 3 days, call your doctor or health district manager primary care sales. Your mouth may get dry. Chewing sugarless gum or sucking hard candy, and drinking plenty of water may help. Contact your doctor if the problem does not go away or is severe. You have been given the following additional information: Chest Wall Strain Ketorolac Tromethamine Oral tablet Tramadol Hydrochloride Oral tablet No driving or operating machinery while taking medication. (Electronically signed by Terry Beverly MD 01/19/2017 9:20)
== END 2017-01-19 03:42 | disposition home or self-care (01) ==
LOC: ED SRH 00:51
DX: R07.89 Other chest pain (principal); F17.210 Nicotine dependence, cigarettes, uncomplicated; Z88.0 Allergy status to penicillin

== ENCOUNTER 2017-01-24 10:05 | Emergency (ER) | payer OTHER ==
--- NOTE | 2017-01-24 11:27 | DIAGNOSTIC IMAGING REPORT ---
PROCEDURE: CT ABDOMEN/PELVIS W/O CONTRAST INDICATION: Right flank pain. TECHNIQUE: Noncontrast axial images with sagittal and coronal reformations. COMPARISON: None. FINDINGS: ABDOMEN: Kidneys and ureters are normal. No evidence of urinary tract calculus or obstruction. Gallbladder, liver, spleen, pancreas, and aorta are normal. Bowel pattern is normal, including appendix. PELVIS: Pelvic structures are normal. IMPRESSION: 1. Negative CT abdomen pelvis. No evidence of urinary tract obstruction or calculus. 2. Findings discussed with Dr. Cholo Duque. All CT scans at this facility use dose modulation, iterative reconstruction, and/or weight-based dosing when appropriate to reduce radiation dose to as low as reasonably achievable.
--- NOTE | 2017-01-24 14:15 | ED ORDER SUMMARY ---
..... Patient: ROSA QUILES OrderSheet [facility] VisitID: [id number] [place] [address] 31y, M Registration Date/Time: 01/24/2017 ORDER SHEET Weight: 68.0 kg (stated) Allergies: Penicillin GENERAL ORDERS: CT Abd/Pel wo Cont Urgent (11:01/24/2017 Gregoria Bobby) (Ack 11:04 Renetta) (13:05 Wilian R.N.) CBC w Diff Urgent (11:01/24/2017 Gregoria Bobby) (Ack 11:04 Renetta) (11:42 Erickaeck R.N.) CMP Urgent (11:01/24/2017 Gregoria Bobby) (Ack 11:04 Renetta) (11:42 Brian R.N.) UA-Culture if indicated Urgent (11:01/24/2017 Gregoria Bobby) (Ack 11:04 Renetta) (13:06 Luis Albertoe R.N.) Lipase Urgent (11:01/24/2017 Gregoria Bobby) (Ack 11:04 Renetta) (11:42 JSbrittanyeck R.N.) Pulse oximeter (11:01/24/2017 Gregoria Bobby) (Ack 11:04 Renetta) (12:53 KHoerner) MEDICATION ORDERS: IV FLUIDS: IV NS : initial bolus 1000 mL (1000 mL/hr), then none - for X1 (NOW) (11:01/24/2017 Gregoria Bobby) (12:02 LWhalen R.N.) Toradol IV 30 mg (NOW) (:01/24/2017 Gregoria Bobby) (12:02 LWhalen R.N.) Morphine IV 4 mg (HIGH ALERT MEDICATION, NOW) (:01/24/2017 Gregoria Bobby) (12:02 LWhalen R.N.) ORDER SHEET NOTES: [Electronically signed by Fly Guzmán R.N. (19:20 01/24/2017)] [Electronically signed by Cholo Duque Dr. (12:55 01/26/2017)] [Electronically locked/signed by Fly Guzmán R.N. (19:20 01/24/2017)]
--- NOTE | 2017-01-24 14:15 | ED ORDER SUMMARY ---
..... Patient: ROSA QUILES OrderSheet [facility] VisitID: [id number] [place] [address] 31y, M Registration Date/Time: 01/24/2017 ORDER SHEET Weight: 68.0 kg (stated) Allergies: Penicillin GENERAL ORDERS: CT Abd/Pel wo Cont Urgent (11:01/24/2017 Gregoria Bobby) (Ack 11:04 Renetta) (13:05 Wilian R.N.) CBC w Diff Urgent (11:01/24/2017 Gregoria Bobby) (Ack 11:04 Renetta) (11:42 Erickaeck R.N.) CMP Urgent (11:01/24/2017 Gregoria Bobby) (Ack 11:04 Renetta) (11:42 Brian R.N.) UA-Culture if indicated Urgent (11:01/24/2017 Gregoria Bobby) (Ack 11:04 Renetta) (13:06 Luis Albertoe R.N.) Lipase Urgent (11:01/24/2017 Gregoria Bobby) (Ack 11:04 Renetta) (11:42 JSbrittanyeck R.N.) Pulse oximeter (11:01/24/2017 Gregoria Bobby) (Ack 11:04 Renetta) (12:53 KHoerner) MEDICATION ORDERS: IV FLUIDS: IV NS : initial bolus 1000 mL (1000 mL/hr), then none - for X1 (NOW) (11:01/24/2017 Gregoria Bobby) (12:02 LWhalen R.N.) Toradol IV 30 mg (NOW) (:01/24/2017 Gregoria Bobby) (12:02 LWhalen R.N.) Morphine IV 4 mg (HIGH ALERT MEDICATION, NOW) (:01/24/2017 Gregoria Bobby) (12:02 LWhalen R.N.) ORDER SHEET NOTES: [Electronically signed by Fly Guzmán R.N. (19:20 01/24/2017)] [Electronically signed by Cholo Duque Dr. (12:55 01/26/2017)] [Electronically locked/signed by Fly Guzmán R.N. (19:20 01/24/2017)]
--- NOTE | 2017-01-24 14:15 | ED NURSING NOTES ---
Clinical Report - Nurses [facility] [address] [place] [address] 01/24/2017 10:05 Patient: ROSA QUILES TRIAGE Triage time 10:14 Jan 24 2017. Acuity: LEVEL 3. Chief Complaint: COUGH. MAYA COMA SCORE: [place] Coma Scale: 15- eyes open spontaneously (4); best verbal response- oriented x 4 (5); best motor response- obeys commands (6). --10:19 Fly Guzmán R.N. 10:14 01/24/17. BP: 135/85. HR: 98. RR: 20. O2 saturation: 98%. Temp: 98.4 F. --10:19 Fly Guzmán R.N. Weight: 68 kg stated. Height/Length: 74 inches Per Patient. BMI: 19.3. --10:18 Fly Guzmán R.N. Medications Omeprazole Oral, as needed. --10:15 Fly Guzmán R.N. TraMADol HCl ER Oral. --10:16 Fly Guzmán R.N. Ketorolac Tromethamine Oral. --10:16 Fly Guzmán R.N. Allergies Penicillin. --10:15 Fly Guzmán R.N. History Arrived by private vehicle. Historian: patient. Accompanied by family. Onset. (Three weeks has been seen here a couple of times.). He has had a nasal discharge, chest congestion, chills, fatigue and sinus pain. Denies muscle aches. No headache, photophobia or difficulty breathing. PAST MEDICAL HX: The patient has had contact with a sick family member. Immunizations: up-to-date. No recent travel. SOCIAL HX: Current every day heavy tobacco smoker- less than 1 pack per day. Occasional alcohol use. History of drug use: marijuana. SELF HARM ASSESSMENT: A self harm assessment was performed. The patient answered "no" to the question "Have you recently felt down, depressed, or hopeless?" and "Do you have thoughts of harming or killing yourself?". FALL RISK ASSESSMENT: Fall risk assessment completed. No fall risk identified. NUTRITIONAL RISK ASSESSMENT: The nutritional risk assessment revealed no deficiencies. FUNCTIONAL ASSESSMENT: Functional assessment: no impairments noted. LEARNING NEEDS ASSESSMENT: The learning needs assessment revealed no barriers. ABUSE ASSESSMENT: Abuse assessment: (yes) The patient was asked "Do you feel safe in your home?". SKIN INTEGRITY ASSESSMENT: Skin integrity risk assessment completed. No skin integrity risk identified. --10:19 Fly Guzmná R.N. PROBLEMS: Chest Wall Pain. Costochondritis. Bladder Infections. Rib Fracture. Fall from ladder. Influenza. Sick Contact. Drug Poisoning. PTSD. Hepatitis C carrier. --10:17 Fly Guzmán R.N. ADDITIONAL SURGERIES: no known surgeries. Interventions ID band on patient. --10:19 Fly Guzmán R.N. PHYSICAL ASSESSMENT Ambulatory to room. GENERAL / NEURO / PSYCH: Alert. Oriented X 4. Appears in no acute distress. HEENT: Pupils equal, round and reactive to light. Ears within normal limits. Nares within normal limits. Mouth within normal limits upon inspection. Pharynx within normal limits. Voice within normal limits. Mucous membranes are pink. RESPIRATORY: Mild respiratory distress. Respirations not labored. The patient can speak a few words at a time. Cough. CVS: Normal sinus rhythm noted. Capillary refill less than 2 seconds. SKIN: Skin is warm and dry. Normal skin turgor. --10:21 Fly Guzmán R.N. NURSING PROGRESS NOTES The initial plan of care for this patient has been created. Pulse oximeter and NIBP monitor placed on patient. Reassurance given. Call light placed in reach. Side rails up x 1. Bed placed in lowest position. Brakes of bed on. --10:22 Fly Guzmán R.N. 11:40 01/24/2017 Site #1 started via IV in the right hand with an 18g angiocath, with aseptic technique and good blood return; one attempt. Blood drawn. Labeled in the presence of the patient and sent to the lab. Saline lock flushed with 10 mL saline. --11:42 Abhijeet Trevino R.N. 11:52 01/24/2017 Started bag #1 1000 mL IV Fluids IV NS (Saline); at 999 mL/hr over 1 hour(s) via site #1 via IV pump. Allergies verified and confirmed 5 rights. IV patency established. IV site checked: no pain, redness, or swelling. IV flushed thoroughly pre- and post-medication administration. --12:02 Fly Guzmán R.N. 12:01/24/2017 Toradol IVP 30 mg given over 2 minute(s) via site #1. Allergies verified and confirmed 5 rights. IV patency established. IV site checked: no pain, redness, or swelling. IV flushed thoroughly pre- and post-medication administration. --12:02 Fly Guzmán R.N. 12:01/24/2017 Morphine IVP 4 mg given over 2 minute(s) via site #1. Allergies verified, confirmed 5 rights and sedative warning given to the patient's major account representative. IV patency established. IV site checked: no pain, redness, or swelling. IV flushed thoroughly pre- and post-medication administration. --12:02 Fly Guzmán R.N. 13:01/24/2017 IV Fluids IV NS Discontinued: bag #1 infused. Total amount infused: 1000 mL. IV patency established. IV site checked: no pain, redness, or swelling. IV flushed thoroughly. --13:05 Michaelle Silva R.N. DISPOSITION / DISCHARGE <<STRICKEN ENTRY-- 14:10 01/24/17. HR: 160. RR: 30. O2 saturation: 99%. Temp: 99.5 F. Pain level now 12/04. --14:11 Fly Guzmán R.N. --END STRIKE>> Charted on wrong patient. --14:14 Fly Guzmán R.N. <<STRICKEN ENTRY-- Departure time: 14:Jan 24 2017. Condition at departure: improved. No learning barriers present. Discharge instructions provided and reviewed with the parent. Reviewed warnings. Reviewed medication(s). Treatments reviewed. Reviewed referrals. Patient verbalized understanding. Written instructions provided in Congolese. The patient was discharged home and accompanied by parent. He left the Emergency Department via private vehicle. Parent driving. --14:11 Fly Guzmán R.N. --END STRIKE>> Charted On Wrong Patient --14:16 Fly Guzmán R.N. 14:31 01/24/2017 Site #1 removed upon discharge. Catheter intact. Pressure dressing applied. --14:31 Fly Guzmán R.N. Departure time: 14:Jan 24 2017. Condition at departure: improved. No learning barriers present. Discharge instructions provided and reviewed with the patient and spouse. Reviewed warnings. Reviewed medication(s). Treatments reviewed. Reviewed referrals. Patient verbalized understanding. Written instructions provided in Congolese. The patient was discharged home and accompanied by spouse. He left the Emergency Department ambulatory and via private vehicle. Spouse driving. --14:32 Fly Guzmán R.N. 14:30 01/24/17. BP: 158/92. HR: 68. RR: 18. O2 saturation: 98%. Temp: 98.6 F. Pain level now 2/10. --14:32 Fly Guzmán R.N. Locked/Released at 01/24/2017 19:20 by Fly Guzmán R.N.
--- NOTE | 2017-01-24 14:15 | ED CLINICAL REPORT ---
Clinical Report - Physicians/Mid Levels [facility] [address] [place] [address] 01/24/2017 10:05 Patient: ROSA QUILES Time Seen: 1051. Arrived- By private vehicle. Historian- patient. HISTORY OF PRESENT ILLNESS Chief Complaint: FLANK PAIN and right. It is described as "pain". No radiation. It is described as located in the right flank. At its maximum, severity described as moderate. When seen in the E.D., severity described as moderate. Modifying factors- worsened by deep breaths. Relieved by rest. This started past week. and is still present (worsening). It was abrupt in onset and has been constant but is not gone now. No nausea, loss of appetite, vomiting or diarrhea. No additional abdominal pain. (reports injuring ribs and with coughing recently. was seen here and diagnosed with rib straining. reports he got worse today). No recent travel. Similar symptoms previously: None. Recent medical care: The patient was seen recently in the emergency department. REVIEW OF SYSTEMS No fever or skin rash. All systems otherwise negative, except as recorded above. PAST HISTORY See nurses notes. SOCIAL HISTORY Never smoker. No alcohol use or drug use. No recent travel. Is a local resident. ADDITIONAL NOTES The nursing notes have been reviewed. PHYSICAL EXAM Vital Signs: 01/24/2017 10:14 BP: 135/85. HR: 98. RR: 20. O2 saturation: 98%. Temp: 98.4 F. Blood pressure normal. Oxygen saturation normal. Appearance: Alert. Oriented X3. No acute distress. Eyes: Pupils equal, round and reactive to light. Eyes normal inspection. ENT: Ears normal. Nose normal. Pharynx normal. Neck: Normal inspection. Neck supple. CVS: Normal heart rate and rhythm. Heart sounds normal. Pulses normal. Respiratory: No respiratory distress. Breath sounds normal. Chest nontender. No rales, rhonchi or wheezes. Abdomen: Soft and nontender. Bowel sounds normal. Back: Normal inspection. Moderate CVA tenderness on the right. (no midline tenderness no step-offs. No crepitus been overlying skin changes). Skin: Skin warm and dry. Normal skin color. No rash. Normal skin turgor. Extremities: Extremities exhibit normal ROM. No lower extremity edema. Neuro: Oriented X 3. No motor deficit. No sensory deficit. LABS, X-RAYS, AND EKG Abdominal CT: PROCEDURE: CT ABDOMEN/PELVIS W/O CONTRAST INDICATION: Right flank pain. TECHNIQUE: Noncontrast axial images with sagittal and coronal reformations. COMPARISON: None. FINDINGS: ABDOMEN: Kidneys and ureters are normal. No evidence of urinary tract calculus or obstruction. Gallbladder, liver, spleen, pancreas, and aorta are normal. Bowel pattern is normal, including appendix. PELVIS: Pelvic structures are normal. IMPRESSION: 1. Negative CT abdomen pelvis. No evidence of urinary tract obstruction or calculus. Study type: abdomen and pelvis. The study was independently viewed by me and interpreted by the radiologist. The study was discussed with the radiologist (via phone and pacs). Laboratory Tests: UA-Culture if indicated: (ALAINA: 01/24/2017 11:40) ( MsgRcvd 01/24/2017 12:22) Final results Test Result Flag Units (Reference) URINE COLOR YELLOW URINE APPEARANCE CLOUDY URINE GLUCOSE NEGATIVE (NEGATIVE) URINE BILIRUBIN NEGATIVE (NEGATIVE) URINE KETONE NEGATIVE (NEGATIVE) URINE SPECIFIC GRAVITY >= 1.030 (1.010-1.030) URINE PH 5.5 (5.0-8.0) URINE PROTEIN TRACE (NEGATIVE) URINE UROBILINOGEN 0.2 EU/dL (0.2-1.0) URINE NITRITE NEGATIVE (NEGATIVE) URINE BLOOD NEGATIVE (NEGATIVE) URINE LEUK ESTERASE NEGATIVE (NEGATIVE) URINE RBC NONE SEEN rbc/hpf (0-1) URINE WBC 0-1 wbc/hpf (0-1) URINE EPITHELIAL CELLS 0-1 EPI/hpf (0-5) URINE BACTERIA TRACE (<1+) (NONE SEEN) URINE COMMENT CULT NOT INDICATED 3+ AMORPHOUS URATES1+ MUCOUSURINE CULTURES ARE SET-UP BASED ON THE FOLLOWING CRITERIA:POSITIVE NITRITEPOSITIVE LEUKOCYTE ESTERASEGREATER THAN 10 WHITE BLOOD CELLSMODERATE (2+) OR GREATER BACTERIA CBC w Diff: (ALAINA: 01/24/2017 11:40) ( MsgRcvd 01/24/2017 12:07) Final results Test Result Flag Units (Reference) WHITE BLOOD COUNT 8.5 K/uL (4.5-11.5) RED BLOOD COUNT 4.59 M/uL (4.50-5.90) HEMOGLOBIN 14.3 gm/dL (13.5-17.5) HEMATOCRIT 42.5 % (41.0-53.0) MEAN CELL VOLUME 93 fL (80-100) MEAN CORPUSCULAR HGB 31 pg (26-34) MEAN CORPUSCULAR HGB CONC 34 g/dL (31-37) RED CELL DISTRIBUTION WIDTH 13.7 % (11.6-14.8) PLATELET COUNT 332 K/uL (150-400) NEUTROPHIL % 61.8 % (50-75) LYMPH % 23.1 L % (25-40) MONO % 12.3 % (3-14) EOSINOPHIL % 2.3 % (0-4) BASOPHIL % 0.5 % (0-2) CMP: (ALAINA: 01/24/2017 11:40) ( MsgRcvd 01/24/2017 12:23) Final results Test Result Flag Units (Reference) GLUCOSE 118 H mg/dL (70-110) BUN 10 mg/dL (7-18) CREATININE 1.1 mg/dL (0.6-1.3) Estimated GFR >60 mL/min Estimated GFR- >60 mL/min Note: Persistent reduction over 3 months in eGFR<60 mL/min/1.73 m2 defines CKD. Patients with eGFR values>=60 mL/min/1.73 m2 may also have CKD if evidence ofpersistent proteinuria. Additional information may be foundat www.[email or web address].org. SODIUM 141 mmol/L (136-145) POTASSIUM 4.3 mmol/L (3.5-5.1) CHLORIDE 106 mmol/L (98-107) CARBON DIOXIDE 23 mmol/L (21-32) CALCIUM 8.5 mg/dL (8.5-10.1) TOTAL PROTEIN 7.2 g/dL (6.4-8.2) ALBUMIN 3.3 g/dL (3.3-5.0) BILIRUBIN, TOTAL 0.3 mg/dL (0.0-1.0) ALKALINE PHOSPHATASE 93 U/L (46-116) AST (SGOT) 48 H U/L (15-37) ALT (SGPT) 59 U/L (12-78) LIPASE 318 U/L (73-393) . PROGRESS AND PROCEDURES Course of Care: the patient is a pleasant 31-year-old male presenting for a vaginal right-sided flank pain. At this time differential diagnosis includes acute kidney stones, urinary tract infection, lower lobe pneumonia, ormusculoskeletal pain. Patient has been here several times and he evaluated and not found to have anything specific. Patient reports that the pain is slightly different today and more posterior. Patient is afebrile here in the emergency department. Vital signs are noted to be unremarkable. Patient is agreeable to treatment and plan. Patient's workup is notable for the findings above. No signs of urinary tract infection. A CT scan is unremarkable. No evidence of lower lobe pneumonia or other more sinister causes for the patient's back pain. Had discussion with the patient in regards his workup in the emergency department including diagnosis, home care, follow-up, and return precautions. All questions have been answered. The patient expressed understanding of these instructions and was agreeable to them. Do not feel patient neeo be admitted to the hospital require further emergency department workup/evaluation. No evidence of neurovascular compromise. Patient is neurovascularly intact. Patient continues to be nontoxic and in no acute distress. At this time muscular skeletal pain is favored. We'll have patient with a trial of muscle relaxers and refill patient's pain medication that he received earlier. Disposition: Discharged. Condition: good. CLINICAL IMPRESSION Blood pressure normal. Oxygen saturation normal. Acute nontraumatic lumbar back pain. (right sided). INSTRUCTIONS Warnings: GENERAL WARNINGS: Return or contact your physician immediately if your condition worsens or changes unexpectedly, if not improving as expected, or if other problems arise. SPECIFICALLY, return if you develop pain, fever, vomiting, the inability to keep fluids down, blood in vomitus, blood in diarrhea, fainting, lightheadedness or vaginal bleeding. numbness, Tingling, weakness, shortness of breath, incontinence. Your Current Medications: CONTINUE TAKING THE FOLLOWING MEDICATIONS: Ketorolac Tromethamine Oral. Omeprazole Oral : prn. TraMADol HCl ER Oral. Prescription Medications: Tramadol 50 mg: take 1 orally every 8 hours as needed for pain and stiffness. Do not take more than 8 tablets in a 24 hour period. Dispense twenty (20). No refills. Diclofenac 75 mg tablets: take 1 tablet orally every 12 hours as needed for pain or stiffness. Dispense twenty (20). No refill. (take with food) Flexeril 10 mg: take 1 orally every 8 hours as needed for muscle spasm or pain. Dispense twenty (20). No refills. Substitution is permissible. (his) Follow-up: Return to the emergency department as needed. Follow up with your doctor in three days. Reason for referral: recheck today's concerns. Summary of care provided to patient via paper. Screening today revealed the patient's blood pressure to be in the normal range. The patient should follow up with a primary care provider for blood pressure management. Understanding of the discharge instructions verbalized by patient. (Electronically signed by Cholo Duque Dr. 01/26/2017 12:55)
--- NOTE | 2017-01-26 12:55 | ED DISCHARGE INSTRUCTIONS ---
Patient: ROSA QUILES General Instructions [facility] VisitID: [id number] [place] [address] 31y, M Registration Date/Time: 01/24/2017 Blood pressure normal. Oxygen saturation normal. Acute nontraumatic lumbar back pain. (right sided). INSTRUCTIONS Warnings: GENERAL WARNINGS: Return or contact your physician immediately if your condition worsens or changes unexpectedly, if not improving as expected, or if other problems arise. SPECIFICALLY, return if you develop pain, fever, vomiting, the inability to keep fluids down, blood in vomitus, blood in diarrhea, fainting, lightheadedness or vaginal bleeding. numbness, Tingling, weakness, shortness of breath, incontinence. Your Current Medications: CONTINUE TAKING THE FOLLOWING MEDICATIONS: Ketorolac Tromethamine Oral. Omeprazole Oral : prn. TraMADol HCl ER Oral. Prescription Medications: Tramadol 50 mg: take 1 orally every 8 hours as needed for pain and stiffness. Do not take more than 8 tablets in a 24 hour period. Dispense twenty (20). No refills. Diclofenac 75 mg tablets: take 1 tablet orally every 12 hours as needed for pain or stiffness. Dispense twenty (20). No refill. (take with food) Flexeril 10 mg: take 1 orally every 8 hours as needed for muscle spasm or pain. Dispense twenty (20). No refills. Substitution is permissible. (his) Follow-up: Return to the emergency department as needed. Follow up with your doctor in three days. Reason for referral: recheck today's concerns. Summary of care provided to patient via paper. Screening today revealed the patient's blood pressure to be in the normal range. The patient should follow up with a primary care provider for blood pressure management. Understanding of the discharge instructions verbalized by patient. ADDITIONAL INFORMATION Back Pain [Acute Or Chronic] Back pain is usually caused by an injury to the muscles or ligaments of the spine. Sometimes the disks that separate each bone in the spine may bulge and cause pain by pressing on a nearby nerve. Back pain may also appear after a sudden twisting/bending force (such as in a car accident), after a simple awkward movement, or lifting something heavy with poor body positioning. In either case, muscle spasm is often present and adds to the pain. Acute back pain usually gets better in one to two weeks. Back pain related to disk disease, arthritis in the spinal joints or spinal stenosis (narrowing of the spinal canal) can become chronic and last for months or years. Unless you had a physical injury (for example, a car accident or fall) X-rays are usually not ordered for the initial evaluation of back pain. If pain continues and does not respond to medical treatment, x-rays and other tests may be performed at a later time. Home Care: You may need to stay in bed the first few days. But, as soon as possible, begin sitting or walking to avoid problems with prolonged bed rest (muscle weakness, worsening back stiffness and pain, blood clots in the legs). When in bed, try to find a position of comfort. A firm mattress is best. Try lying flat on your back with pillows under your knees. You can also try lying on your side with your knees bent up towards your chest and a pillow between your knees. Avoid prolonged sitting. This puts more stress on the lower back than standing or walking. During the first two days after injury, apply an ICE PACK to the painful area for 20 minutes every 2-4 hours. This will reduce swelling and pain. HEAT (hot shower, hot bath or heating pad) works well for muscle spasm. You can start with ice, then switch to heat after two days. Some patients feel best alternating ice and heat treatments. Use the one method that feels the best to you. You may use acetaminophen (Tylenol) or ibuprofen (Motrin, Advil) to control pain, unless another pain medicine was prescribed. [NOTE: If you have chronic liver or kidney disease or ever had a stomach ulcer or GI bleeding, talk with your doctor before using these medicines.] Be aware of safe lifting methods and do not lift anything over 15 pounds until all the pain is gone. Follow Up with your doctor or this facility if your symptoms do not start to improve after one week. Physical therapy may be needed. [NOTE: If X-rays were taken, they will be reviewed by a radiologist. You will be notified of any new findings that may affect your care.] Get Prompt Medical Attention if any of the following occur: Pain becomes worse or spreads to your legs Weakness or numbness in one or both legs Loss of bowel or bladder control Numbness in the groin or genital area Tramadol Hydrochloride Oral tablet What is this medicine? TRAMADOL (TRA ma dole) is a pain reliever. It is used to treat moderate to severe pain in adults. How should I use this medicine? Take this medicine by mouth with a full glass of water. Follow the directions on the prescription label. If the medicine upsets your stomach, take it with food or milk. Do not take more medicine than you are told to take. Talk to your occupational therapist aide regarding the use of this medicine in children. Special care may be needed. What side effects may I notice from receiving this medicine? Side effects that you should report to your doctor or health date night caregiver as soon as possible: allergic reactions like skin rash, itching or hives, swelling of the face, lips, or tongue breathing difficulties, wheezing confusion itching light headedness or fainting spells redness, blistering, peeling or loosening of the skin, including inside the mouth seizures Side effects that usually do not require medical attention (report to your doctor or health date night caregiver if they continue or are bothersome): constipation dizziness drowsiness headache nausea, vomiting What may interact with this medicine? Do not take this medicine with any of the following medications: MAOIs like Carbex, Eldepryl, Marplan, Nardil, and Parnate This medicine may also interact with the following medications: alcohol or medicines that contain alcohol antihistamines benzodiazepines bupropion carbamazepine or oxcarbazepine clozapine cyclobenzaprine digoxin furazolidone linezolid medicines for depression, anxiety, or psychotic disturbances medicines for migraine headache like almotriptan, eletriptan, frovatriptan, naratriptan, rizatriptan, sumatriptan, zolmitriptan medicines for pain like pentazocine, buprenorphine, butorphanol, meperidine, nalbuphine, and propoxyphene medicines for sleep muscle relaxants naltrexone phenobarbital phenothiazines like perphenazine, thioridazine, chlorpromazine, mesoridazine, fluphenazine, prochlorperazine, promazine, and trifluoperazine procarbazine warfarin What if I miss a dose? If you miss a dose, take it as soon as you can. If it is almost time for your next dose, take only that dose. Do not take double or extra doses. Where should I keep my medicine? Keep out of the reach of children. Store at room temperature between 15 and 30 degrees C (59 and 86 degrees F). Keep container tightly closed. Throw away any unused medicine after the expiration date. What should I tell my health care provider before I take this medicine? They need to know if you have any of these conditions: brain tumor depression drug abuse or addiction head injury if you frequently drink alcohol containing drinks kidney disease or trouble passing urine liver disease lung disease, asthma, or breathing problems seizures or epilepsy suicidal thoughts, plans, or attempt; a previous suicide attempt by you or a family member an unusual or allergic reaction to tramadol, codeine, other medicines, foods, dyes, or preservatives or trying to get breast-feeding What should I watch for while using this medicine? Tell your doctor or health date night caregiver if your pain does not go away, if it gets worse, or if you have new or a different type of pain. You may develop tolerance to the medicine. Tolerance means that you will need a higher dose of the medicine for pain relief. Tolerance is normal and is expected if you take this medicine for a long time. Do not suddenly stop taking your medicine because you may develop a severe reaction. Your body becomes used to the medicine. This does NOT mean you are addicted. Addiction is a behavior related to getting and using a drug for a non-medical reason. If you have pain, you have a medical reason to take pain medicine. Your doctor will tell you how much medicine to take. If your doctor wants you to stop the medicine, the dose will be slowly lowered over time to avoid any side effects. You may get drowsy or dizzy. Do not drive, use machinery, or do anything that needs mental alertness until you know how this medicine affects you. Do not stand or sit up quickly, especially if you are an older patient. This reduces the risk of dizzy or fainting spells. Alcohol can increase or decrease the effects of this medicine. Avoid alcoholic drinks. You may have constipation. Try to have a bowel movement at least every 2 to 3 days. If you do not have a bowel movement for 3 days, call your doctor or health date night caregiver. Your mouth may get dry. Chewing sugarless gum or sucking hard candy, and drinking plenty of water may help. Contact your doctor if the problem does not go away or is severe. Cyclobenzaprine Hydrochloride Oral tablet What is this medicine? CYCLOBENZAPRINE (jasiel pino) is a muscle relaxer. It is used to treat muscle pain, spasms, and stiffness. How should I use this medicine? Take this medicine by mouth with a glass of water. Follow the directions on the prescription label. If this medicine upsets your stomach, take it with food or milk. Take your medicine at regular intervals. Do not take it more often than directed. Talk to your occupational therapist aide regarding the use of this medicine in children. Special care may be needed. What side effects may I notice from receiving this medicine? Side effects that you should report to your doctor or health date night caregiver as soon as possible: allergic reactions like skin rash, itching or hives, swelling of the face, lips, or tongue chest pain fast heartbeat hallucinations seizures vomiting Side effects that usually do not require medical attention (report to your doctor or health date night caregiver if they continue or are bothersome): headache What may interact with this medicine? Do not take this medicine with any of the following medications: cisapride droperidol flecainide grepafloxacin halofantrine levomethadyl MAOIs like Carbex, Eldepryl, Marplan, Nardil, and Parnate nilotinib pimozide probucol sertindole This medicine may also interact with the following medications: abarelix alcohol contrast dyes dolasetron guanethidine medicines for cancer medicines for depression, anxiety, or psychotic disturbances medicines to treat an irregular heartbeat medicines used for sleep or numbness during surgery or procedure methadone octreotide ondansetron palonosetron phenothiazines like chlorpromazine, mesoridazine, prochlorperazine, thioridazine some medicines for infection like alfuzosin, chloroquine, clarithromycin, levofloxacin, mefloquine, pentamidine, troleandomycin tramadol vardenafil What if I miss a dose? If you miss a dose, take it as soon as you can. If it is almost time for your next dose, take only that dose. Do not take double or extra doses. Where should I keep my medicine? Keep out of the reach of children. Store at room temperature between 15 and 30 degrees C (59 and 86 degrees F). Keep container tightly closed. Throw away any unused medicine after the expiration date. What should I tell my health care provider before I take this medicine? They need to know if you have any of these conditions: heart disease, irregular heartbeat, or previous heart attack liver disease thyroid problem an unusual or allergic reaction to cyclobenzaprine, tricyclic antidepressants, lactose, other medicines, foods, dyes, or preservatives or trying to get breast-feeding What should I watch for while using this medicine? Check with your doctor or health date night caregiver if your condition does not improve within 1 to 3 weeks. You may get drowsy or dizzy when you first start taking the medicine or change doses. Do not drive, use machinery, or do anything that may be dangerous until you know how the medicine affects you. Stand or sit up slowly. Your mouth may get dry. Drinking water, chewing sugarless gum, or sucking on hard candy may help. You have been given the following additional information: Back Pain (Acute Or Chronic) Tramadol Hydrochloride Oral tablet Cyclobenzaprine Hydrochloride Oral tablet (Electronically signed by Cholo Duque Dr. 01/26/2017 12:55)
--- NOTE | 2017-01-26 12:55 | ED MED RECONCILIATION SUMMARY ---
Patient: ROSA QUILES Medication Reconciliation Report [facility] VisitID: [id number] [place] [address] 31y, M Registration Date/Time: 01/24/2017 Weight: 68.0 kg Height/Length: 74 in. BMI: 19.3 ALLERGIES: Penicillin The patient's Home Medications are listed below: CONTINUE TAKING THE FOLLOWING MEDICATIONS: Ketorolac Tromethamine Oral Omeprazole Oral TraMADol HCl ER Oral The source(s) of the original Home Medication information: Not obtained. The following Medications were given to the patient in the Emergency Department: IV NS IV Fluids bolus 0, then 999 mL/hr, administered: 01/24/2017 11:52:00 AM Toradol [IVP] IVP 30 mg, administered: 01/24/2017 12:02:00 PM Morphine [IVP] IVP 4 mg, administered: 01/24/2017 12:02:00 PM The following Medications were prescribed to the patient: Tramadol 50 mg: take 1 orally every 8 hours as needed for pain and stiffness. Do not take more than 8 tablets in a 24 hour period. Dispense twenty (20). No refills. -- Cholo Duque Dr. Diclofenac 75 mg tablets: take 1 tablet orally every 12 hours as needed for pain or stiffness. Dispense twenty (20). No refill.(take with food) -- Cholo Duque Dr. Flexeril 10 mg: take 1 orally every 8 hours as needed for muscle spasm or pain. Dispense twenty (20). No refills. Substitution is permissible.(his) -- Cholo Duque Dr.
--- NOTE | 2017-01-26 12:55 | ED MAR SUMMARY ---
..... Medication Administration [facility] [address] [place] [address] Patient: ROSA QUILES Visit ID: [id number] 31y, M Weight: 68.0 kg Height/Length: 74 in BMI: 19.3 ALLERGIES: Penicillin Start 11:52 01/24/2017 Fly Guzmán R.N., Stop 13:05 01/24/2017 Michaelle Silva R.N. Medication Administered: IV NS (SALINE), Dose: IV Fluids over 1 hour(s), Rate: 999 mL/hr, Dispensed: 1000 mL bag, Site: #1 right hand. Medication Ordered: IV NS : initial bolus 1000 mL (1000 mL/hr), then none - for X1 (NOW). Given 12:02 01/24/2017 Fly Guzmán R.N. Medication Administered: TORADOL [IVP], Dose: 30 mg IVP over 2 minute(s), Site: #1 right hand. Medication Ordered: Toradol IV 30 mg (NOW). Given 12:02 01/24/2017 Fly Guzmán R.N. Medication Administered: MORPHINE [IVP], Dose: 4 mg IVP over 2 minute(s), Site: #1 right hand. Medication Ordered: Morphine IV 4 mg (HIGH ALERT MEDICATION, NOW).
--- NOTE | 2017-01-26 12:55 | ED MED RECONCILIATION SUMMARY ---
Patient: ROSA QUILES Medication Reconciliation Report [facility] VisitID: [id number] [place] [address] 31y, M Registration Date/Time: 01/24/2017 Weight: 68.0 kg Height/Length: 74 in. BMI: 19.3 ALLERGIES: Penicillin The patient's Home Medications are listed below: CONTINUE TAKING THE FOLLOWING MEDICATIONS: Ketorolac Tromethamine Oral Omeprazole Oral TraMADol HCl ER Oral The source(s) of the original Home Medication information: Not obtained. The following Medications were given to the patient in the Emergency Department: IV NS IV Fluids bolus 0, then 999 mL/hr, administered: 01/24/2017 11:52:00 AM Toradol [IVP] IVP 30 mg, administered: 01/24/2017 12:02:00 PM Morphine [IVP] IVP 4 mg, administered: 01/24/2017 12:02:00 PM The following Medications were prescribed to the patient: Tramadol 50 mg: take 1 orally every 8 hours as needed for pain and stiffness. Do not take more than 8 tablets in a 24 hour period. Dispense twenty (20). No refills. -- Cholo Duque Dr. Diclofenac 75 mg tablets: take 1 tablet orally every 12 hours as needed for pain or stiffness. Dispense twenty (20). No refill.(take with food) -- Cholo Duque Dr. Flexeril 10 mg: take 1 orally every 8 hours as needed for muscle spasm or pain. Dispense twenty (20). No refills. Substitution is permissible.(his) -- Cholo Duque Dr.
--- NOTE | 2017-01-26 12:55 | ED MAR SUMMARY ---
..... Medication Administration Record [facility] [address] [place] [address] Patient: ROSA QUILES Visit ID: [id number] 31y, M Weight: 68.0 kg Height/Length: 74 in BMI: 19.3 ALLERGIES: Penicillin Start 11:52 01/24/2017 Fly Guzmán R.N., Stop 13:05 01/24/2017 Michaelle Silva R.N. Medication Administered: IV NS (SALINE), Dose: IV Fluids over 1 hour(s), Rate: 999 mL/hr, Dispensed: 1000 mL bag, Site: #1 right hand. Medication Ordered: IV NS : initial bolus 1000 mL (1000 mL/hr), then none - for X1 (NOW). Given 12:02 01/24/2017 Fly Guzmán R.N. Medication Administered: TORADOL [IVP], Dose: 30 mg IVP over 2 minute(s), Site: #1 right hand. Medication Ordered: Toradol IV 30 mg (NOW). Given 12:02 01/24/2017 Fly Guzmán R.N. Medication Administered: MORPHINE [IVP], Dose: 4 mg IVP over 2 minute(s), Site: #1 right hand. Medication Ordered: Morphine IV 4 mg (HIGH ALERT MEDICATION, NOW).
== END 2017-01-24 16:28 | disposition home or self-care (01) ==
LOC: ED SRH 10:05
DX: M54.5 Low back pain (principal); Z88.0 Allergy status to penicillin
CPT/HCPCS: 90004; 90100; 92235; 95059